=== PATIENT | male | born 1950 | race Caucasian/White ===

== ENCOUNTER 2017-11-24 17:06 | Emergency (ER) | payer MEDICARE ==
[2017-11-24] MEDS ORDERED: Ondansetron HCl/PF 4 MG/2 ML Vial ONE (17:18)
[2017-11-24] MEDS ORDERED: Ketorolac Tromethamine 30 MG/ML VIAL ONE (17:28)
[2017-11-24 17:46] LABS: #Basophils 0.1 thou/uL (0.0-0.2); #Eosinphils 0.3 thou/uL (0.0-0.7); #Lymphocytes 1.8 thou/uL (1.20-3.40); #Monocytes 0.9 thou/uL (0.11-0.59); #Neutrophils 5.3 thou/uL (1.40-6.50); %Lymphocytes 21.3 % (21.0-51.0); %Monocytes 10.4 % (0.0-10.0); %Neutrophils 63.4 % (42.0-75.0); Mean Corpuscular HGB CONC 34.9 g/dL (32.0-36.0); Mean Corpuscular Hemoglobin 30.8 pg (27.0-31.0); Mean Corpuscular Volume 88.1 fl (80.0-94.0); Mean Platelet Volume 8.3 fL (7.4-10.4); Platelet Count 238 thou/uL (130-400); RBC Distribution Width 10.9 % (11.5-14.5); Red Blood Cell (RBC) Count 4.88 mill/uL (4.70-6.10); White Blood Cell (WBC) Count 8.3 thou/uL (4.8-10.8)
[2017-11-24 18:03] LABS: ALT (SGPT) 23 U/L (8-55); AST (SGOT) 19 U/L (5-34); Albumin 4.3 g/dL (3.4-4.8); Alkaline Phosphatase 78 U/L (40-150); Anion Gap 17 mmol/L (10-20); BUN (Urea Nitrogen) 20 mg/dL (8.4-25.7); Bilirubin, Total 0.5 mg/dL (0.2-1.2); Calc. Creatinine Clearance 0 mL/min (70-130); Calcium 10.1 mg/dL (7.8-10.44); Carbon Dioxide 23 mmol/L (23-31); Chloride 105 mmol/L (98-107); Estimated GFR-MDRD 51; Glucose 143 mg/dL (80-115); Lipase 44 U/L (8-78); Potassium 3.8 mmol/L (3.5-5.1); Protein, Total 7.3 g/dL (5.8-8.1); Sodium 141 mmol/L (136-145)
--- NOTE | 2017-11-24 18:53 | CT ---
NONCONTRAST CT ABDOMEN AND PELVIS: Date: 11-24-17 History: Nausea and right flank pain with onset of symptoms 1.5 hours ago. Comparison: None available. FINDINGS: There is mild caliectasis on the right. A 3 mm calculus is present at the right UPJ. No obstructing r ight renal calculi are seen, the largest in the mid portion right kidney measuring 8 mm with a small calculus in the inferior pole right kidney. There is a 5.4 cm hypodense lesion in the inferior pole r ight kidney with a 7.5 cm exophytic hypodense lesion in the midportion left kidney, each of which dem onstrates attenuation coefficients on this non-enhanced CT scan exam suggestive of renal cysts. A 1.7 cm nodule is seen within the left adrenal gland which does not demonstrate an attenuation co-ef ficient suggestive of a simple adrenal adenoma based on this exam. This could represent a lipid poor adrenal adenoma, but further evaluation is recommended. The most superior aspect of the spleen is excluded from view. The remainder of the visualized portion of the spleen, liver, pancreas, right adrenal gland, and urinary bladder demonstrate a grossly maria eugenia l nonenhanced CT appearance. There is evidence colonic diverticulosis. Degenerative changes are seen in the spine. No free fluid, fluid collection, or lymphadenopathy is seen in the abdomen or pelvis. Vascular calcification is present in the abdominal aorta and iliac arteries. IMPRESSION: 1. Left adrenal nodule. This cannot be characterized as a simple adrenal adenoma on this exam, and CT scan exam following adrenal mass protocol is recommended. This can be performed on a non-emergent ba sis. 2. Minimally obstructing approximately 3 mm calculus at the right UPJ. 3. Nonobstructing right renal calculi. 4. Bilateral renal cysts. 5. Colonic diverticulosis. POS: [facility]
== END 2017-11-24 18:30 | disposition home or self-care (01) ==
LOC: SCSER 17:06
DX: N20.2 Calculus of kidney with calculus of ureter (principal)
CPT/HCPCS: 74176; 80053; 83690; 85025; 96361; 96374; 96375; J1885; J2405

== ENCOUNTER 2018-01-26 08:21 | Outpatient (CLI) | payer MEDICARE ==
[2018-01-26 09:18] LABS: Anion Gap 12 mmol/L (10-20); BUN (Urea Nitrogen) 14 mg/dL (8.4-25.7); Calc. Creatinine Clearance 0 mL/min (70-130); Calcium 9.9 mg/dL (7.8-10.44); Carbon Dioxide 28 mmol/L (23-31); Chloride 105 mmol/L (98-107); Estimated GFR-MDRD 59; Glucose 133 mg/dL (80-115); Potassium 4.1 mmol/L (3.5-5.1); Sodium 141 mmol/L (136-145)
--- NOTE | 2018-01-26 12:03 | CT ---
ABDOMEN CT WITH AND WITHOUT CONTRAST: HISTORY: Previous renal calculi. CT mass protocol recommended by radiologist. Left adrenal nodule. COMPARISON: 11/24/17. TECHNIQUE: Abdomen CT is performed with and without contrast. Coronal reformatted images are submitted for inte rpretation. FINDINGS: Lung bases are clear. Normal heart size. No significant pericardial fluid. Visualized aorta has a normal caliber. No periaortic fat stranding. The gallbladder is unremarkable. Intra- and extrahepatic portal vein is patent. Liver, spleen, pancreas, and right adrenal gland are unremarkable. Bilateral renal cysts are redemonstrated. Bilaterally, no obstructive uropathy. Nono bstructing calculus in the right renal pelvis measuring 1.3 cm. Visualized alimentary canal and mesentery are unremarkable. A 1.6 cm nodule in the left adrenal gland. Attenuation coefficient on the noncontrast study is 23 Ho unsfield units, on the venous sequence is 61 Hounsfield units, and on the 15-minute delay is 43 Houns field units. The absolute washout is 47%, relative washout is 30%. No lytic or blastic lesions within the osseous structures. IMPRESSION: Lesion in the left adrenal gland with an absolute and relative washout of 47 and 30% respectively. G iven that the washout is less than 60%, a malignant lesion cannot be excluded. POS: [facility]
== END 2018-01-26 08:22 | disposition home or self-care (01) ==
LOC: SCSCT 08:21
PROVIDERS: ATTEND Urology
DX: Z12.5 Encounter for screening for malignant neoplasm of prostate (principal); E27.9 Disorder of adrenal gland, unspecified
CPT/HCPCS: 36415; 74170; 80048; 82024; 82088; 82533; G0103

== ENCOUNTER 2018-08-18 08:38 | Outpatient (CLI) | payer MEDICARE ==
[2018-08-18] MEDS ORDERED: Iopamidol 370 76% 100 ML VIAL ONE (09:00)
--- NOTE | 2018-08-18 14:50 | CT ---
CT ABDOMEN WITH AND WITHOUT IV CONTRAST: 08/18/2018 HISTORY: Evaluate left adrenal mass and renal calculi. Adrenal gland disorder. COMPARISON: 01/26/2018 FINDINGS: The previously described left adrenal nodule is again seen and measures 1.7 cm. The attenuation coef ficient on pre-contrast images is 21 Hounsfield units, attenuation coefficient on the venous phase is 56 Hounsfield units, and on the 15 minute delayed image, the attenuation coefficient is 27 Hounsfiel d units. This represents an absolute wash-out of 82.9% and a relative wash-out of 51.8%. An absolut e wash-out of greater than 60% and a relative wash-out of greater than 40% is consistent with an manny star. Attenuation coefficients on the pre-contrast and the portal venous phase of imaging are similar to the prior study, although, on the 15 minute delayed wash-out, the attenuation coefficient is lowe r than on the prior exam. Bilateral renal cysts are again seen. There are stable, nonobstructing bilateral renal calculi, with the largest calculus within the mid portion of the right kidney, measuring 14 mm x 7 mm, with the ne xt largest calculus in the inferior pole, right kidney, measuring 8 mm. There is one additional calc ulus, adjacent to the larger calculus, which is small in size. No left renal calculus is visualized. There is minimal linear atelectasis versus scarring at the left lung base. The lung bases are otherw ise clear. The liver, spleen, pancreas, and bilateral adrenal glands demonstrate a normal CT appearance. Vascul ar calcifications are seen in the abdominal aorta. Colonic diverticulosis is present. There has been no significant interval change from the prior exam. IMPRESSION: 1. Left adrenal gland lesion with absolute and relative wash-out of 82.9% and 51.8%, respectively. An absolute wash-out of greater than 60% and a relative wash-out of greater than 40% is consistent wi th an adrenal adenoma. 2. Bilateral renal cysts. 3. Nonobstructing bilateral renal calculi. 4. Colonic diverticulosis. POS: [facility]
== END 2018-08-18 08:39 | disposition home or self-care (01) ==
LOC: SCSCT 08:38
PROVIDERS: ATTEND Urology
DX: E27.9 Disorder of adrenal gland, unspecified (principal); N20.0 Calculus of kidney; N28.1 Cyst of kidney, acquired; K57.30 Diverticulosis of large intestine without perforation or abscess without bleeding
CPT/HCPCS: 74170; 82565

== ENCOUNTER 2019-08-23 07:21 | Outpatient (CLI) | payer MEDICARE ==
[2019-08-23] MEDS ORDERED: Iopamidol 370 76% 100 ML VIAL ONE (09:00)
--- NOTE | 2019-08-23 11:15 | CT ---
CT ABDOMEN WITH AND WIHTOUT IV CONTRAST: Axial tomograms were obtained pre- and post-IV contrast. Postcontrast images were obtained in a port al venous and delayed venous phase. Adrenal protocol followed. COMPARISON: Comparison is made to prior CT adrenal scan performed 08/18/2018. FINDINGS: A 1.6 cm left adrenal nodule is again noted. Density values are recorded at all phases. Noncontrast density recorded at 22 which is similar to last year's noncontrast density which was 21. The portal venous density is recorded at 50. Last year's portal venous density is recorded at 56. The delayed density is recorded at 56. The delayed density today is recorded at 24. Last year's density was recorded at 26. There has been no change in size or density values when compared to last year. Liver, spleen, and pancreas unremarkable. There are bilateral adrenal cystic lesions which appear st able. There is a calcification in the right renal pelvis which measures 12 mm. No evidence of hydro nephrosis. There is a calcification in the lower pole of the lower pole of the right kidney measurin g 10 mm. Visualized ureters are normal caliber. Aorta shows atherosclerotic calcification without a neurysm. Visualized bowel loops appear unremarkable. IMPRESSION: 1. The left adrenal adenoma is unchanged in size and density when compared to last year. 2. Bilateral renal cystic lesions are stable. 3. Right renal calcifications are noted as described. POS: [facility]
== END 2019-08-23 07:22 | disposition home or self-care (01) ==
LOC: SCSCT 07:21
PROVIDERS: ATTEND Urology
DX: E27.8 Other specified disorders of adrenal gland (principal); E27.9 Disorder of adrenal gland, unspecified; Q61.8 Other cystic kidney diseases; D35.02 Benign neoplasm of left adrenal gland; N28.89 Other specified disorders of kidney and ureter
CPT/HCPCS: 74178; 82565; Q9967

== ENCOUNTER 2019-09-03 20:58 | Inpatient (IN) | payer MEDICARE ==
[~2019-09-03 20:58] MED LIST: Lidocaine 1% PF 5 ML VIAL ONE; Ondansetron PF 4 MG/2 ML Vial ONE; PHENYLEPHRINE-NS 100 MCG/ML 10 ML SYRINGE ONE; PROPOFOL 200 MG/20 ML VIAL ONE; Succinylcholine Chloride 20 MG/ML 10 ml SYRINGE FS ONE; ePHEDrine 50 MG/ML VIAL ONE
[2019-09-03] MEDS ORDERED: Iothalamate Meglumine 60% 50 ML VIAL FS ONE (21:19)
[2019-09-03] MEDS ORDERED: Norepinephrine 8 MG in Dextrose 5% in Water 242 ML IVPB PRN (21:30)
[2019-09-03 21:39] LABS: Hemoglobin 10.4 g/dL (14.0-18.0); Mean Corpuscular HGB CONC 33.8 g/dL (32.0-36.0); Mean Corpuscular Hemoglobin 29.8 pg (27.0-31.0); Mean Corpuscular Volume 88.2 fL (78.0-98.0); Mean Platelet Volume 8.2 fL (7.4-10.4); Platelet Count 161 thou/uL (130-400); RBC Distribution Width 12.5 % (11.5-14.5); Red Blood Cell (RBC) Count 3.48 mill/uL (4.70-6.10)
[2019-09-03 21:57] LABS: Band 2 % (5-11); Hypochromia SLIGHT = 6-15 cells (100X) (0-5/hpf); Lymphocytes 1 % (21-51); MDiff Complete? YES; Neutrophil 97 % (42-75); Platelet Morphology Comment Appears Adequate
[2019-09-03 21:58] LABS: ALT (SGPT) 11 U/L (8-55); AST (SGOT) 33 U/L (5-34); Alkaline Phosphatase 46 U/L (40-110); Anion Gap 11 mmol/L (10-20); BUN (Urea Nitrogen) 31 mg/dL (8.4-25.7); Bilirubin, Total 0.4 mg/dL (0.2-1.2); Calc. Creatinine Clearance 0 mL/min (70-130); Calcium 7.5 mg/dL (7.8-10.44); Carbon Dioxide 21 mmol/L (23-31); Chloride 108 mmol/L (98-107); Estimated GFR-MDRD 14; Globulin 2.1 g/dL (2.4-3.5); Glucose 127 mg/dL (80-115); Potassium 3.6 mmol/L (3.5-5.1); Protein, Total 5.1 g/dL (5.8-8.1); Sodium 136 mmol/L (136-145)
[2019-09-03] MEDS ORDERED: Phenylephrine HCL 10 MG/ML VIAL ONE (21:59)
[2019-09-03] MEDS ORDERED: methylPREDNISolone Sod Succ/PF 125 MG/2 ML VIAL ONE (22:11)
--- NOTE | 2019-09-03 22:19 | RAD ---
Exam: Chest one view HISTORY:Central line placement Comparison: 12/04/2014 FINDINGS: Cardiac silhouette:Enlarged cardiac silhouette Aorta: Unremarkable Pulmonary vessels: Normal Costophrenic angles: Clear LUNGS: No masses or consolidation. Changes along parenchyma. Lines and tubes: Right-sided vascular catheter terminates over the expected region of the right atriu m. Pneumothorax: None Osseous abnormalities: None IMPRESSION: No pneumothorax.
[2019-09-04] MEDS: Sodium Chloride 0.9% 1,000 ML IV SCH ×4 (00:15→21:40)
[2019-09-04] MEDS: cefTRIAXone\\ROCEPHIN 1 GM in Sodium Chloride 0.9% 100 ML IVPB SCH ×2 (00:33→23:16)
[2019-09-04 01:28] VITALS: BMI 30.1
[2019-09-04] MEDS ORDERED: Vancomycin HCl 1 GM in Premix Bag 1 BAG IVPB SCH (01:45)
--- NOTE | 2019-09-04 02:34 | HP ---
PRIMARY CARE PROVIDER: Dr. Carroll Torres. CHIEF COMPLAINT: Low blood pressure. HISTORY OF PRESENT ILLNESS: Mr. Conway is a pleasant 69-year-old gentleman, who was seen at [facility] on September 04, 2019. He was reportedly transferred here from [facility] Emergency Room. I obtained history from patient and his , emergency room physician and review of records. Mr. Conway was reportedly diagnosed with a kidney stone one and half years ago. It appears that he sees Dr. Brito. He started having flank pain two days ago. He went to the clinic and was diagnosed with nephrolithiasis. He was prescribed Tylenol No. 3, Zofran, and Flomax. Patient reports that he tried to get out of bed today and fell down on the floor. Patient's reports that he was less responsive than usual, sweating profusely and weak and he could not get back into his bed. He was therefore brought to the emergency room. In the emergency room, he was diagnosed with nephrolithiasis. He was taken to the operating room for urologic procedure. Patient is being admitted to hospitalist service following the procedure. REVIEW OF SYSTEMS: All systems were reviewed and found to be negative, except for the pertinent positives mentioned above. PAST MEDICAL HISTORY: Prediabetes, hypertension, and nephrolithiasis. PAST SURGICAL HISTORY: Right knee surgery and tonsillectomy. PSYCHIATRIC HISTORY: Depression. SOCIAL HISTORY: He is an ex-smoker. He occasionally drinks beer. No recreational drug use. FAMILY HISTORY: No family history of coronary artery disease. CODE STATUS: I discussed his code status. He is full code. ALLERGIES: PENICILLIN. CURRENT MEDICATIONS: These need to be clarified. PHYSICAL EXAMINATION: GENERAL: On examination, Mr. Conway is sleepy, but arousable, not in acute distress. VITAL SIGNS: Blood pressure is 99/59, pulse 68, respiratory rate 11, and oxygen saturation 98% on room air. He is afebrile. EYES: No scleral icterus, no conjunctival pallor. ENT: Moist mucosal membranes. No oropharyngeal erythema or exudates. NECK: Supple, nontender, trachea is midline. He has a left IJ line. RESPIRATORY: Accessory muscles of breathing are not active. Chest wall movements are symmetric bilaterally. Lungs are clear to auscultation without wheeze, rhonchi, or crepitations. CARDIOVASCULAR: S1 and S2 are heard, regular. Peripheral pulses palpable. NEUROLOGIC: Cranial nerves 2 through 12 are intact. MUSCULOSKELETAL: Patient is able to move all 4 extremities. SKIN: No rashes or subcutaneous nodules. LYMPHATIC: No cervical lymphadenopathy. PSYCHIATRIC: Normal mood, normal affect, patient is oriented to person, place, month, and the year. ABDOMEN: Soft, nontender, bowel sounds are heard. LABORATORY DATA: Mr. Conway's labs and investigations were reviewed. I reviewed his telemetry, he is in normal sinus rhythm. I also reviewed his chest x-ray, which does not show any pulmonary infiltrates. He has leukocytosis with 16,000 white cells, of which 97% are neutrophils and 2% are bands. He has normocytic anemia with hemoglobin 10.4, normal platelet count. Normal sodium; normal potassium; elevated creatinine of 4.35, creatinine was 1.42 on March 16, 2019. Normal lactic acid. Decreased albumin of 3.0. Normal total bilirubin. ASSESSMENT AND PLAN: Mr. Conway is a pleasant 69-year-old gentleman, who was seen at [facility] on September 04, 2019. His problem list includes: 1. Septic shock: Mr. Conway presented with septic shock. He currently has a central line infusing Levophed. He is being admitted to critical care unit for further management. Septic shock is most likely secondary to urinary tract infection. 2. Acute on chronic stage 3 renal failure: Most likely secondary to septic shock. We will hydrate the patient and also provide vasopressor support. We will recheck creatinine level. 3. Urinary tract infection: Patient has received vancomycin and ceftriaxone. I will continue the same. Pharmacy help will be requested for renal dosing. 4. Hypertension: Patient has a history of hypertension. He is currently hypotensive secondary to sepsis. We will hold off antihypertensives. Many thanks for allowing me to participate in your patient's care. Please feel free to contact me with any questions or concerns. LEVEL OF RISK: High. LEVEL OF COMPLEXITY: High. Job ID: [id number]
[2019-09-04 07:29] LABS: #Basophils 0.1 thou/uL (0.0-0.2); #Lymphocytes 0.2 thou/uL (1.20-3.40); #Monocytes 0.3 thou/uL (0.11-0.59); #Neutrophils 16.9 thou/uL (1.40-6.50); %Basophils 0.4 % (0.0-1.0); %Eosinophils 0.1 % (0.0-10.0); %Lymphocytes 1.2 % (21.0-51.0); %Monocytes 1.5 % (0.0-10.0); %Neutrophils 96.8 % (42.0-75.0); Hemoglobin 11.1 g/dL (14.0-18.0); Mean Corpuscular HGB CONC 31.4 g/dL (32.0-36.0); Mean Corpuscular Hemoglobin 27.9 pg (27.0-31.0); Mean Corpuscular Volume 88.8 fL (78.0-98.0); Mean Platelet Volume 8.6 fL (7.4-10.4); Platelet Count 164 thou/uL (130-400); RBC Distribution Width 12.5 % (11.5-14.5); Red Blood Cell (RBC) Count 3.99 mill/uL (4.70-6.10); White Blood Cell (WBC) Count 17.5 thou/uL (4.8-10.8)
[2019-09-04 07:42] LABS: Anion Gap 14 mmol/L (10-20); BUN (Urea Nitrogen) 35 mg/dL (8.4-25.7); Calc. Creatinine Clearance 28 mL/min (70-130); Carbon Dioxide 20 mmol/L (23-31); Chloride 106 mmol/L (98-107); Estimated GFR-MDRD 16; Glucose 234 mg/dL (80-115); Potassium 4.5 mmol/L (3.5-5.1); Sodium 135 mmol/L (136-145)
[2019-09-04] MEDS ORDERED: FLU VACC TS2019-20(65YR UP)/PF 180 MCG/0.5 ML SYRINGE IM ONE (09:00)
--- NOTE | 2019-09-04 10:10 | PRG ---
DATE OF SERVICE: 09/04/2019 This is a 69-year-old white male. I am seeing this morning in C7 of the ICU. I saw him last evening in the ER and then emergently took him to the OR, not sure where my H and P and operative note are. They were dictated last night. They have not made up to his record yet. Overnight, he has been doing better. His Levophed drip has diminished and probably will be able to be turned off. His blood pressure has been better. Urine output picked up nicely and has cleared up. It still has some pus in it, but it is much clear than it was after the stent was initially placed. He has not had a temperature. His O2 sats are good on just 2 L nasal cannula. He is on vancomycin and Rocephin. His white count is elevated at 17.5. His hemoglobin is 11.1. His creatinine is 4.3 yesterday evening, it was 3.7 this morning, so that starting to improve also. He states that he is feeling better. Less pain. No fever. No chills. No shortness of breath. His abdomen is soft. There is some right upper quadrant tenderness still, but not anywhere near as severe as it was yesterday. He is not hungry at all. I will plan on leaving the catheter in today and probably stay in the ICU through most of the day. His kidney should be protected now with the stent in place. Ly catheter, I would like to leave it in for at least a day. He will be on the Rocephin and vancomycin until the cultures come back. Overall, he has improved from what he was last night. It is fine by me for him to take clear liquids and advance his diet and is fine from my standpoint from to get out of bed, sit in a chair and walk in the room. Job ID: [id number]
--- NOTE | 2019-09-04 13:36 | PDOC.HOSPP ---
- Subjective Encounter Date: 09/04/19 Encounter Time: 11:33 Subjective: 69 y/o male with HTN, CKD and nephrolithiasis admitted to ICU with septic shock. patient had a fall/syncope at home associated with diaphoresis. Found to have obstructing stone and hypotension. as resuscitated with fluid and subsequently had cystoscopy with stent placement. Required pressors nut current off levophed. Feeling better. No chest pain, nausea or vomiting. - Objective Vital Signs & Weight: Vital Signs (12 hours) Temp Pulse Ox 09/04/19 12:00 98.0 F 09/04/19 07:50 98 09/04/19 07:00 97.8 F 09/04/19 04:00 97.9 F Weight Admit Weight 234 lb 12.8 oz Weight 234 lb 12.8 oz Most Recent Monitor Data Heart Rate from ECG 69 NIBP 116/68 NIBP BP-Mean 84 Respiration from ECG 19 SpO2 99 I&O: 09/03/19 09/04/19 09/05/19 06:59 06:59 06:59 Intake Total 1548.6 Output Total 555 880 Balance 993.6 -880 Result Diagrams: 09/04/19 07:07 09/04/19 07:07 Hospitalist ROS - Medication Medications: Active Medications Generic Name Dose Route Start Last Admin Trade Name Freq PRN Reason Stop Dose Admin Ceftriaxone Sodium 1 gm/ 100 mls @ 200 mls/hr 09/03/19 23:59 09/04/19 00:33 Sodium Chloride IVPB 100 mls 2359 CAROL Administration Sodium Chloride 1,000 mls @ 150 mls/hr 09/04/19 02:45 09/04/19 08:08 Normal Saline 0.9% IV 1,000 mls .Q6H40M CAROL Administration - Exam General Appearance: awake alert Eye: anicteric sclera ENT: normocephalic atraumatic Neck: supple, no JVD Heart: RRR Respiratory: no wheezes, no rales, no ronchi, normal chest expansion Gastrointestinal: soft, non-distended, normal bowel sounds, tender to palpation Extremities: no edema Neurological: cranial nerve grossly intact, no focal deficits Psychiatric: A&O x 3 Hosp A/P (1) Septic shock Code(s): A41.9 - SEPSIS, UNSPECIFIED ORGANISM; R65.21 - SEVERE SEPSIS WITH SEPTIC SHOCK Status: Acute (2) Nephrolithiasis Status: Acute (3) Pyelonephritis Code(s): N12 - TUBULO-INTERSTITIAL NEPHRITIS, NOT SPCF ACUTE OR CHRONIC Status: Acute (4) ROSEANNA (acute kidney injury) Code(s): N17.9 - ACUTE KIDNEY FAILURE, UNSPECIFIED Status: Acute (5) CKD (chronic kidney disease) stage 3, GFR 30-59 ml/min Code(s): N18.3 - CHRONIC KIDNEY DISEASE, STAGE 3 (MODERATE) Status: Acute - Plan Continue broad spectrum antibiotics, start sliding scale insulin. monitor electrolytes and renal function continue IVF
[2019-09-04] MEDS ORDERED: Dextrose 50% Abboject 50 ML SYRINGE SLOW IVP PRN (13:40)
[2019-09-04] MEDS ORDERED: HumaLOG 300 UNITS/3 ML VIAL SC PRN (13:40)
[2019-09-04] MEDS ORDERED: Dextrose 5% in Water 1,000 ML IV PRN (13:40)
[2019-09-04] MEDS ORDERED: B & O PR PRN (14:40)
--- NOTE | 2019-09-04 22:03 | CON ---
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 He has a history of nephrolithiasis and recently undergone CT scanning showing that his kidney stones were not causing a problem. Subsequently, he was admitted with hypotension, he was found to have ureteral obstruction. He was hypotensive prior to admission, but also taking his hypertension medications and noticed after he took his medications his blood pressure was running low yesterday. PAST MEDICAL HISTORY: Remarkable for hypertension, knee surgery, and tonsillectomy. SOCIAL HISTORY: He is a former smoker. Occasionally drinks beer. He is not a drug user. FAMILY HISTORY: Negative for lung disease. ALLERGIES: REPORTS PENICILLIN ALLERGY. REVIEW OF SYSTEMS: 10 point review of systems completed, otherwise negative. PHYSICAL EXAMINATION: GENERAL: He is sitting in a bedside chair, in no distress. VITAL SIGNS: Oximetry is 100% on room air, heart rate is in the 60s, blood pressure 132/71 this evening, respiratory rate 16. Intake and output was positive 993. HEAD AND NECK: Unremarkable. LUNGS: Clear. HEART: Regular rhythm. S1 and S2 are normal. ABDOMEN: Nontender. EXTREMITIES: Without clubbing, cyanosis, or edema. NEURO: Nonfocal. LABORATORY DATA: White count 17.5, hemoglobin 11.1, platelets 164. Sodium 135, potassium 4.5, chloride 106, bicarb 20, BUN 35, creatinine 3.76 down from 4.35. Microbiology showing enterococcus from the ureteral cultures. IMPRESSION: Urinary tract sepsis secondary to an obstructing stone. He is on vancomycin which should cover for enterococcus. He has no reason to suspect vancomycin-resistant Enterococcus. He is weaned off pressors this morning. He could be transferred to a step-down unit if he remained stable throughout the day or even to a surgical unit or medical bed. This is a 70 minute consult, with greater than 50% of time spent on unit coordinating care. Job ID: [id number] [facility]ITALBaudilio
[2019-09-05 01:50] LABS: Vancomycin, Random 9.9 ug/mL (See Comment)
[2019-09-05] MEDS ORDERED: Vancomycin HCl 1 GM in Premix Bag 1 BAG IVPB SCH ×2 (03:00→21:00)
[2019-09-05] MEDS: Vancomycin HCl 1 GM in Premix Bag 1 BAG IVPB SCH (04:33)
[2019-09-05] MEDS: Sodium Chloride 0.9% 1,000 ML IV SCH ×3 (04:37→18:29)
[2019-09-05 04:55] LABS: #Lymphocytes 0.6 thou/uL (1.20-3.40); #Monocytes 1.2 thou/uL (0.11-0.59); %Eosinophils 0.1 % (0.0-10.0); %Lymphocytes 3.8 % (21.0-51.0); %Neutrophils 88.1 % (42.0-75.0); Hemoglobin 10.7 g/dL (14.0-18.0); Mean Corpuscular HGB CONC 33.2 g/dL (32.0-36.0); Mean Corpuscular Hemoglobin 29.2 pg (27.0-31.0); Mean Corpuscular Volume 88.1 fL (78.0-98.0); Mean Platelet Volume 9.1 fL (7.4-10.4); Platelet Count 157 thou/uL (130-400); RBC Distribution Width 12.4 % (11.5-14.5); Red Blood Cell (RBC) Count 3.68 mill/uL (4.70-6.10); White Blood Cell (WBC) Count 14.7 thou/uL (4.8-10.8)
[2019-09-05 05:02] LABS: ALT (SGPT) 17 U/L (8-55); AST (SGOT) 34 U/L (5-34); Albumin 3.1 g/dL (3.4-4.8); Alkaline Phosphatase 47 U/L (40-110); Anion Gap 10 mmol/L (10-20); BUN (Urea Nitrogen) 34 mg/dL (8.4-25.7); Bilirubin, Total 0.3 mg/dL (0.2-1.2); Calc. Creatinine Clearance 43 mL/min (70-130); Calcium 8.3 mg/dL (7.8-10.44); Carbon Dioxide 22 mmol/L (23-31); Chloride 111 mmol/L (98-107); Estimated GFR-MDRD 26; Globulin 2.4 g/dL (2.4-3.5); Glucose 140 mg/dL (80-115); Potassium 4.4 mmol/L (3.5-5.1); Protein, Total 5.5 g/dL (5.8-8.1); Sodium 139 mmol/L (136-145)
--- NOTE | 2019-09-05 10:57 | PDOC.HOSPP ---
- Subjective Encounter Date: 09/05/19 Encounter Time: 10:54 Subjective: Feel lot better, off levofed - Objective Vital Signs & Weight: Vital Signs (12 hours) Temp Pulse Ox 09/05/19 08:00 96 09/05/19 07:00 98.0 F 09/05/19 04:00 98.3 F 09/05/19 00:00 98.1 F Weight Admit Weight 234 lb 12.8 oz Weight 234 lb 12.8 oz Most Recent Monitor Data Heart Rate from ECG 73 NIBP 140/86 NIBP BP-Mean 104 Respiration from ECG 20 SpO2 97 I&O: 09/04/19 09/05/19 09/06/19 06:59 06:59 06:59 Intake Total 1548.6 3319 240 Output Total 555 2340 300 Balance 993.6 979 -60 Result Diagrams: 09/05/19 04:25 09/05/19 04:25 Additional Labs: Accuchecks 09/05/19 09/05/19 09/04/19 07:47 04:31 20:32 POC Glucose 118 H 139 H 139 H 09/04/19 16:50 POC Glucose 169 H Hospitalist ROS - Medication Medications: Active Medications Generic Name Dose Route Start Last Admin Trade Name Freq PRN Reason Stop Dose Admin Belladonna Alkaloids/Opium 60 mg 09/04/19 14:40 09/04/19 14:53 B & O SD 09/06/19 00:01 60 mg Q8H PRN Administration Bladder Spasms Ceftriaxone Sodium 1 gm/ 100 mls @ 200 mls/hr 09/03/19 23:59 09/04/19 23:16 Sodium Chloride IVPB 100 mls 2359 CAROL Administration Sodium Chloride 1,000 mls @ 150 mls/hr 09/04/19 02:45 09/05/19 04:37 Normal Saline 0.9% IV 1,000 mls .Q6H40M CAROL Administration Vancomycin HCl 1 gm/ Device 200 mls @ 200 mls/hr 09/05/19 03:00 09/05/19 04: 33 IVPB 200 mls 0300 CAROL Administration - Exam General Appearance: NAD, awake alert, ill appearing Eye: PERRL, anicteric sclera, scleral icterus ENT: normocephalic atraumatic, no oropharyngeal lesions, moist mucosa, dry oral mucosa Neck: supple, symmetric, no JVD, no thyromegaly, no lymphadenopathy, no carotid bruit, JVD Heart: RRR, no murmur, no gallops, no rubs, normal peripheral pulses, irregular , diminshed peripheral pulses, murmur present, II/IV, III/IV Respiratory: CTAB, no wheezes, no rales, no ronchi, normal chest expansion, no tachypnea, normal percussion, rales, rhonchi, tachypneic, wheezes Gastrointestinal: soft, non-tender, non-distended, normal bowel sounds, no palpable masses, no hepatomegaly, no splenomegaly, no bruit, no guarding, no rigidity, tender to palpation, distended, diminished bowl sounds, voluntary guarding Extremities: no cyanosis, no clubbing, no edema, 1+ LE edema, 2+ LE edema, clubbing Skin: normal turgor, no lesions, no rashes, tenting Hosp A/P (1) Nephrolithiasis Status: Acute (2) Pyelonephritis Code(s): N12 - TUBULO-INTERSTITIAL NEPHRITIS, NOT SPCF ACUTE OR CHRONIC Status: Acute (3) Septic shock Code(s): A41.9 - SEPSIS, UNSPECIFIED ORGANISM; R65.21 - SEVERE SEPSIS WITH SEPTIC SHOCK Status: Acute - Plan Possible transfer to telemetry if okay with Dr. Love. Continue IV antibitics.
[2019-09-05 11:34] LABS: #Lymphocytes 0.6 thou/uL (1.20-3.40); #Monocytes 1.2 thou/uL (0.11-0.59); #Neutrophils 12.5 thou/uL (1.40-6.50); %Eosinophils 0.2 % (0.0-10.0); %Monocytes 8.6 % (0.0-10.0); %Neutrophils 87.2 % (42.0-75.0); Mean Corpuscular HGB CONC 32.3 g/dL (32.0-36.0); Mean Corpuscular Hemoglobin 28.4 pg (27.0-31.0); Mean Corpuscular Volume 87.9 fL (78.0-98.0); Mean Platelet Volume 8.8 fL (7.4-10.4); Platelet Count 162 thou/uL (130-400); RBC Distribution Width 12.5 % (11.5-14.5); Red Blood Cell (RBC) Count 3.88 mill/uL (4.70-6.10); White Blood Cell (WBC) Count 14.3 thou/uL (4.8-10.8)
[2019-09-05 11:55] LABS: Anion Gap 11 mmol/L (10-20); BUN (Urea Nitrogen) 33 mg/dL (8.4-25.7); Calc. Creatinine Clearance 49 mL/min (70-130); Calcium 8.3 mg/dL (7.8-10.44); Carbon Dioxide 20 mmol/L (23-31); Chloride 110 mmol/L (98-107); Estimated GFR-MDRD 31; Glucose 124 mg/dL (80-115); Potassium 4.1 mmol/L (3.5-5.1); Sodium 137 mmol/L (136-145)
--- NOTE | 2019-09-05 18:25 | PRG ---
DATE OF SERVICE: 09/05/2019 SUBJECTIVE: Mr. Conway is clinically doing well. He had no complaints. His blood pressure has been stable. He has remained off pressors. OBJECTIVE: VITAL SIGNS: Blood pressure in the 130s, heart rates in the 70s, respiratory rate , oximetry is 98% to 100%. LUNGS: Clear. HEART: Regular rhythm. ABDOMEN: Soft. LABORATORY DATA: White count 14.3, hemoglobin 11.0, platelets 162. Sodium 137, potassium 4.1, chloride 110, bicarb 20, BUN 33, creatinine 2.14, down from 2.44. IMPRESSION: Enterococcus faecalis bacteremia secondary to an obstructing stone. Enterococcus is ampicillin sensitive. I will defer to Dr. Tapia. Mr. Conway wants the Ly out. I will also defer this to . Otherwise, he is stable to move out of the Critical Care Unit. Job ID: [id number]
[2019-09-05] MEDS: Phenazopyridine HCl 97.5 MG TABLET PO SCH (18:27)
[2019-09-06] MEDS: cefTRIAXone\\ROCEPHIN 1 GM in Sodium Chloride 0.9% 100 ML IVPB SCH (00:29)
[2019-09-06] MEDS: Vancomycin HCl 1 GM in Premix Bag 1 BAG IVPB SCH (00:34)
[2019-09-06] MEDS: Sodium Chloride 0.9% 1,000 ML IV SCH ×2 (05:38→08:05)
[2019-09-06] MEDS: Phenazopyridine HCl 97.5 MG TABLET PO SCH ×3 (08:57→17:53)
--- NOTE | 2019-09-06 10:04 | CON ---
DATE OF CONSULTATION: 09/03/2019 HISTORY OF PRESENT ILLNESS: This is a 69-year-old white male who has a history of kidney stones. He is a patient Dr. Brito. He was not feeling well yesterday, some right flank pain, some nausea, vomited once. I saw his family doctor or someone who was covering for his family doctor, was placed on some pain medication, felt he was passing a stone. Today, his found him probably passed out at her home, brought him into the [facility] ER. There he had a CAT scan done that shows he has a 1 cm proximal obstructing right ureteral stone and some hydronephrosis above. His urinalysis there had white cells and bacteria. He received Rocephin there. Blood and urine cultures were set up. He was transferred here. He is going to receive some vancomycin here. His blood pressure is low here. His creatinine was 4.5 at the [facility], I do not have those records, but I was able to review the CAT scan from the [facility]. He has had a history of stones prior. PAST MEDICAL HISTORY: He has diabetes. He takes metformin. He has hypertension. He takes one antihypertensive. He takes some vitamins and supplements. PAST SURGICAL HISTORY: Surgical history is really not very impressive. ALLERGIES: PENICILLIN. SOCIAL HISTORY: He used to smoke. He does drink some alcohol. 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 He is currently getting a central line placed. I have talked with him and his . He is going to receive the vancomycin. He will receive some pressure support and he is to go up to the OR, have an emergent stent placed and then he will need to go to the ICU after that. He most likely has a urinary tract infection with a proximal ureteral obstruction and is becoming septic from that. Job ID: [id number]
--- NOTE | 2019-09-06 14:24 | PRG ---
DATE OF SERVICE: 09/05/2019 REASON FOR CONSULTATION: 1. Obstructive nephrolithiasis. 2. Urosepsis. 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 The patient is cared for by Dr. Doron Tapia, who evaluated him on 09/04/2019, due to the emergency room admission with findings of elevated white blood cell count and a CT scan, which previously demonstrated obstructive urolithiasis on 08/23/2019. The patient underwent CT scanning on that date, which demonstrated left adrenal adenoma, bilateral renal cystic disease, right renal calcifications. The patient was admitted on 09/03/2019 via the Emergency Department, where he underwent evaluation after being found unresponsive by his . The patient was brought to the [facility] ER for evaluation of the urosepsis. The patient was previously diagnosed with a right ureteropelvic junction calculus, which is relatively large. He did not have obstruction actually at the time of the CT scan as documented by contrast passing around the calculus into the patient's distal ureters. The patient has apparently additional lower pole calcification as well on the right side. He underwent treatment by Dr. Tapia, which included a right-sided double-J ureteral stent. In addition, the patient has a history of urethral stricture disease and additional urethral strictures were noted at the time of the cystoscopy. A Ly catheter was placed for complete drainage of his collecting system based on the suspicion of urosepsis. The patient has been in the intensive care unit and the input of Dr. Love as well as the Hospitalist Service is appreciated. PHYSICAL EXAMINATION: VITAL SIGNS: The patient remains afebrile at the present time with a temperature of 98.0. The patient's blood pressure is 146/79 and pulse rate is 71. GENERAL: Pleasant, awake, alert, white male, in no apparent distress. He is a reasonable historian. There is no evidence of altered mental status at the present time. HEAD, EYES, EARS, NOSE, AND THROAT: Extraocular movements are intact. Sclerae anicteric. Oropharynx is clear. NECK: Supple. LUNGS: Clear to auscultation bilaterally. CARDIAC: Regular rate and rhythm. ABDOMEN: Soft and nontender. Percussion reveals increased resonance. The patient reports he is having a bowel movement today. There is particulate served in the urine and catheter is in place. catheter, which are typical. The patient reports his bladder spasms seems improved with . LABORATORY STUDIES: The patient's white count is down to 14.3 , neutrophil percentage still remain elevated at 87.2% neutrophils are elevated, but improved at 12.5. Hemoglobin is relatively stable at 11 with a hematocrit of 34.1. Laboratory microbiology studies show urine obtained at cystoscopy is growing enterococcus faecalis. Blood cultures x2 are also positive for enterococcus. The urine culture from shows susceptibility to vancomycin and is only resistant to erythromycin. The patient presumed transition to oral medications or even appropriate penicillin and piperacillin antibiotic. ASSESSMENT AND PLAN: 1. Right-sided renal calculus. The patient has indwelling stent basis by Dr. Doron Tapia. 2. Urethral stricture disease, concurrent infection, and urosepsis. The patient strictures. The catheter should remain placed voiding trial may be improvement. This will also be by Dr. Tapia. 3. Enterococcus faecalis urinary tract infection and urosepsis. The patient is appropriately managed on the current vancomycin course to which the organism appears placement. At the present time, catheter should remain in place. Otherwise, via appropriate patient. Over 30 minutes of consultation assessment time was spent in evaluation . Job ID: [id number]
--- NOTE | 2019-09-06 14:51 | PDOC.HOSPP ---
- Subjective Encounter Date: 09/06/19 Encounter Time: 14:50 Subjective: No New complaints - Objective Vital Signs & Weight: Vital Signs (12 hours) Temp Pulse Ox 09/06/19 12:00 98.8 F 09/06/19 08:00 98.2 F 96 Weight Admit Weight 234 lb 12.8 oz Weight 234 lb 12.8 oz Most Recent Monitor Data Heart Rate from ECG 80 NIBP 140/83 NIBP BP-Mean 102 Respiration from ECG 16 SpO2 95 I&O: 09/05/19 09/06/19 09/07/19 06:59 06:59 06:59 Intake Total 3319 1878 420 Output Total 2340 2885 300 Balance 979 -1007 120 Result Diagrams: 09/05/19 11:02 09/05/19 11:02 Additional Labs: Accuchecks 09/06/19 09/06/19 09/05/19 12:25 06:16 20:30 POC Glucose 101 103 129 H 09/05/19 09/05/19 17:19 12:12 POC Glucose 126 H 126 H Hospitalist ROS - Medication Medications: Active Medications Generic Name Dose Route Start Last Admin Trade Name Freq PRN Reason Stop Dose Admin Ceftriaxone Sodium 1 gm/ 100 mls @ 200 mls/hr 09/03/19 23:59 09/06/19 00:29 Sodium Chloride IVPB 100 mls 2359 CAROL Administration Vancomycin HCl 1 gm/ Device 200 mls @ 200 mls/hr 09/05/19 03:00 09/06/19 00: 34 IVPB 200 mls 0300 CAROL Administration Phenazopyridine HCl 97.5 mg 09/05/19 18:00 09/06/19 08:57 Azo Standard PO 97.5 mg PC CAROL Administration - Exam General Appearance: NAD, awake alert, ill appearing ENT: normocephalic atraumatic, no oropharyngeal lesions, moist mucosa, dry oral mucosa Neck: supple, symmetric, no JVD, no thyromegaly, no lymphadenopathy, no carotid bruit, JVD Heart: RRR, no murmur, no gallops, no rubs, normal peripheral pulses, irregular , diminshed peripheral pulses, murmur present, II/IV, III/IV Respiratory: CTAB, no wheezes, no rales, no ronchi, normal chest expansion, no tachypnea, normal percussion, rales, rhonchi, tachypneic, wheezes Gastrointestinal: soft, non-tender, non-distended, normal bowel sounds, no palpable masses, no hepatomegaly, no splenomegaly, no bruit, no guarding, no rigidity, tender to palpation, distended, diminished bowl sounds, voluntary guarding Hosp A/P (1) Nephrolithiasis Status: Acute (2) Pyelonephritis Code(s): N12 - TUBULO-INTERSTITIAL NEPHRITIS, NOT SPCF ACUTE OR CHRONIC Status: Acute (3) Septic shock Code(s): A41.9 - SEPSIS, UNSPECIFIED ORGANISM; R65.21 - SEVERE SEPSIS WITH SEPTIC SHOCK Status: Acute - Plan Possible transfer to telemetry if okay with Dr. Love. Continue IV antibitics.Await bed.
--- NOTE | 2019-09-06 15:31 | OP ---
DATE OF PROCEDURE: 09/03/2019 PREOPERATIVE DIAGNOSIS: Right ureteral obstruction from a right ureteral stone and sepsis. POSTOPERATIVE DIAGNOSES: 1. Right ureteral obstruction from a right ureteral stone. 2. Sepsis. 3. Urethral stricture disease. PROCEDURES PERFORMED: Cystoscopy, right retrograde, right stent and difficult Ly placement. ANESTHETIC: General. ESTIMATED BLOOD LOSS: Minimal. DRAINS PLACED: A 6 x 26 Polaris double-J stent without a string attached and a 16-Malagasy Councill tip catheter. INDICATIONS FOR SURGERY: This is a 69-year-old white male who presented to [place] [facility] and was transferred here with a right ureteral obstruction and the urine had appeared infected. When he got to the ER here, his blood pressure dropped. He had a central line placed in the ER, started on Levophed. He had received Rocephin over at [place] [facility] and he was started on vancomycin here. He needs emergent stent placement. DESCRIPTION OF PROCEDURE: Obtained written and verbal consent from the patient's family, he was taken to the operating suite. He was placed in supine position on the treatment table. PlexiPulses were placed on his lower extremities and turned on. He was given a general anesthetic and oral obturator intubation. He was then placed in a dorsal lithotomy position, sterilely prepped and draped. The fluoroscopy unit was positioned over and was used during the procedure. Cystoscopy was performed with a 22-Malagasy sheath. This was well lubricated and passed under direct vision through the male urethra. He had diffuse stricture disease that were easily passed until about the bulb where it narrowed down. We fed a wire across this point and then we were able to fairly easily pass the scope by this point into the bladder. His prostate was moderately enlarged. He had a lot of debris and some small stones in the floor of the urinary bladder. A client development manager KUB was taken with a fluoroscopy unit. A 0.038 guidewire was fed up the right ureter and went up to the point where the stone was seen and then went by it easily. We passed the open-ended Pollack catheter up over the wire to this point, removed the wire and drained about 12 to 15 mL of very socrates purulent pus, very thick. We then injected about 5 mL of contrast to fill the collecting system, replaced the guidewire through the open-ended catheter, removed the guidewire and placed a 6 x 26 Polaris double-J stent over the guidewire pushing up into place with aid of a pusher, so its proximal end coiled in the renal pelvis and its distal end coiled in the bladder when the wire was removed. There appeared to be good efflux of very purulent looking urine through the ports on the stent. At this point, a guidewire was left into the bladder and the scope was removed and then we fed a 16 Councill tip catheter over the guidewire into the bladder, placed 10 mL in the balloon and hooked up to gravity. At this point, he was taken out of the dorsal lithotomy position, awakened and extubated, and taken by stretcher to recovery room. I did do an exam while he was asleep. He is circumcised. Testicles are descended without mass or tenderness. Rectal exam revealed an enlarged prostate. There was no nodularity. Job ID: [id number]
--- NOTE | 2019-09-06 16:08 | PRG ---
DATE OF SERVICE: 09/06/2019 This is a 69-year-old white male, I am seeing still in room C7 of the ICU. He has been ready to go to the floor since yesterday, but has not any floor beds. His vital signs have improved. His blood pressure is good. He has had good urine output. His urine is clear. He is comfortable. He still has a very poor appetite, but is drinking some fluids. He grew out an Enterococcus in his urine and Enterococcus in his blood. The sensitivities show resistance to erythromycin. He is on vancomycin. He also had a Staphylococcal species. His creatinine was down to 2.1 yesterday. It does not look like one was drawn today. His abdomen is soft and flat and nontender. The calves are nontender. He is having no shortness of breath, no chest pain. His Ly catheter was removed this morning at about 6:00. Hopefully, he will be able to urinate without difficulty. They tell me he had some urethral stricture disease that is why left the catheter in for an extra day. I also contacted Dr. Brito as he is established patient for him to resume care on [facility]. It seems like he is turning the corner in terms of recovering from the sepsis and we will have to deal treating the stone at another time. Job ID: [id number]
[2019-09-07] MEDS: cefTRIAXone\\ROCEPHIN 1 GM in Sodium Chloride 0.9% 100 ML IVPB SCH (00:07)
[2019-09-07 02:39] LABS: Vancomycin, Trough 10.6 ug/mL
[2019-09-07] MEDS: Vancomycin HCl 1.5 GM in Sodium Chloride 0.9% 250 ML 300 ML IVPB SCH (03:55)
[2019-09-07 08:33] LABS: Anion Gap 12 mmol/L (10-20); BUN (Urea Nitrogen) 27 mg/dL (8.4-25.7); Calc. Creatinine Clearance 58 mL/min (70-130); Calcium 8.9 mg/dL (7.8-10.44); Carbon Dioxide 22 mmol/L (23-31); Chloride 109 mmol/L (98-107); Estimated GFR-MDRD 37; Glucose 99 mg/dL (80-115); Potassium 3.8 mmol/L (3.5-5.1); Sodium 139 mmol/L (136-145)
[2019-09-07] MEDS: Phenazopyridine HCl 97.5 MG TABLET PO SCH ×3 (08:36→17:16)
--- NOTE | 2019-09-07 08:49 | PRG ---
DATE OF SERVICE: 09/06/2019 SUBJECTIVE: Nasir Conway has no complaints. Ly is out. Dr. Tapia wants to keep him OBJECTIVE: VITAL SIGNS: Afebrile, blood pressure 146/84, respiratory rate 16 LUNGS: Clear. HEART: Regular rhythm. ABDOMEN: soft. IMPRESSION AND PLAN: Urinary tract sepsis secondary to nephrolithiasis status post emergent stent placement. Enterococcus faecalis is isolated from the blood cultures and urine culture. Enterococcus was sensitive to ampicillin and vancomycin. We will continue vancomycin now. He could probably be switched to Augmentin. The Rocephin could probably be discontinued. Job ID: [id number]
--- NOTE | 2019-09-07 09:48 | PRG ---
DATE OF SERVICE: 09/07/2019 This is a 69-year-old male, I am seeing today in room 4416 at [facility]. His vital signs are stable. He seems to be feeling better and seems to have recovered from his septic shock. I have talked to Microbiology. He has Enterococcus in his blood and in his urine, he had a staph in his urine also, but not a staph in his blood. The Enterococcus is sensitive to quinolones and penicillins as well as the vancomycin. Unfortunately, he is allergic. He tells me the penicillin and to Cipro. He has rashes with both, so we are not going to be able to send him out on either of these drugs. I think we will need to get Infectious Disease consult to see him regarding, which antibiotic he should go home on whether or not he even needs to go home with a PICC line. We will go ahead and put a consult in. Job ID: [id number]
--- NOTE | 2019-09-07 10:11 | PDOC.HOSPP ---
- Subjective Encounter Date: 09/07/19 Encounter Time: 10:08 Subjective: the patient is in good spirits - Objective Vital Signs & Weight: Vital Signs (12 hours) Temp Pulse Resp BP Pulse Ox 09/07/19 04:00 98.6 F 62 20 149/79 H 93 L Weight Admit Weight 234 lb 12.8 oz Weight 234 lb 12.8 oz Most Recent Monitor Data Heart Rate from ECG 80 NIBP 140/83 NIBP BP-Mean 102 Respiration from ECG 16 SpO2 95 I&O: 09/06/19 09/07/19 09/08/19 06:59 06:59 06:59 Intake Total 1878 420 Output Total 2885 300 Balance -1007 120 Result Diagrams: 09/05/19 11:02 09/07/19 07:41 Additional Labs: Accuchecks 09/07/19 09/06/19 09/06/19 04:55 21:18 18:46 POC Glucose 104 111 H 144 H 09/06/19 12:25 POC Glucose 101 Hospitalist ROS - Medication Medications: Active Medications Generic Name Dose Route Start Last Admin Trade Name Nithinq PRN Reason Stop Dose Admin Vancomycin HCl 1.5 gm/ Sodium 300 mls @ 200 mls/hr 09/07/19 03:00 09/07/19 03 :55 Chloride IVPB 300 mls 0300 CAROL Administration Phenazopyridine HCl 97.5 mg 09/05/19 18:00 09/07/19 08:36 Azo Standard PO 97.5 mg PC CAROL Administration Sodium Chloride 10 ml 09/06/19 21:00 09/07/19 08:37 Flush - Normal Saline IVF 10 ml Q12HR CAROL Administration - Exam General Appearance: NAD, awake alert, ill appearing Eye: PERRL, anicteric sclera, scleral icterus ENT: normocephalic atraumatic, no oropharyngeal lesions, moist mucosa, dry oral mucosa Neck: supple, symmetric, no JVD, no thyromegaly, no lymphadenopathy, no carotid bruit, JVD Heart: RRR, no murmur, no gallops, no rubs, normal peripheral pulses, irregular , diminshed peripheral pulses, murmur present, II/IV, III/IV Respiratory: CTAB, no wheezes, no rales, no ronchi, normal chest expansion, no tachypnea, normal percussion, rales, rhonchi, tachypneic, wheezes Gastrointestinal: soft, non-tender, non-distended, normal bowel sounds, no palpable masses, no hepatomegaly, no splenomegaly, no bruit, no guarding, no rigidity, tender to palpation, distended, diminished bowl sounds, voluntary guarding Extremities: no cyanosis, no clubbing, no edema, 1+ LE edema, 2+ LE edema, clubbing Hosp A/P (1) Nephrolithiasis Status: Acute (2) Pyelonephritis Code(s): N12 - TUBULO-INTERSTITIAL NEPHRITIS, NOT SPCF ACUTE OR CHRONIC Status: Acute (3) Septic shock Code(s): A41.9 - SEPSIS, UNSPECIFIED ORGANISM; R65.21 - SEVERE SEPSIS WITH SEPTIC SHOCK Status: Acute - Plan Possible transfer to telemetry if okay with Dr. Love. Continue IV antibitics.Await bed.E Fecalis s to PCN, CIPRO and Vancomycin. The patient is allergic to CIPRO and PCN. Consult Dr. Murray for out patient IV vancomycin as it requires monitoring.
[2019-09-07] MEDS: traMADol HCl 50 MG TAB PO PRN (12:41)
[2019-09-07] MEDS: metFORMIN 500 MG TAB PO SCH (17:16)
[2019-09-08] MEDS: Vancomycin HCl 1.5 GM in Sodium Chloride 0.9% 250 ML 300 ML IVPB SCH (03:07)
[2019-09-08 06:00] LABS: Anion Gap 11 mmol/L (10-20); BUN (Urea Nitrogen) 20 mg/dL (8.4-25.7); Calc. Creatinine Clearance 61 mL/min (70-130); Calcium 8.8 mg/dL (7.8-10.44); Carbon Dioxide 25 mmol/L (23-31); Chloride 105 mmol/L (98-107); Estimated GFR-MDRD 40; Glucose 101 mg/dL (80-115); Potassium 3.7 mmol/L (3.5-5.1); Sodium 137 mmol/L (136-145)
[2019-09-08] MEDS: Lisinopril/Hydrochlorothiazide 20 mg/12.5 mg Tablet PO SCH (08:40)
[2019-09-08] MEDS: metFORMIN 500 MG TAB PO SCH ×2 (08:40→18:30)
[2019-09-08] MEDS: Phenazopyridine HCl 97.5 MG TABLET PO SCH ×3 (08:40→18:30)
[2019-09-08] MEDS: Atorvastatin Calcium 10 MG TAB PO SCH (08:40)
[2019-09-08] MEDS: traMADol HCl 50 MG TAB PO PRN ×2 (14:18→20:58)
--- NOTE | 2019-09-08 14:41 | PDOC.HOSPP ---
- Subjective Encounter Date: 09/08/19 Encounter Time: 14:39 Subjective: No new complaints - Objective Vital Signs & Weight: Vital Signs (12 hours) Temp Pulse Resp BP BP Pulse Ox 09/08/19 08:00 93 L 09/08/19 07:39 98.8 F 63 20 150/75 H 93 L 09/08/19 04:00 98.6 F 64 18 153/75 H 94 L Weight Admit Weight 234 lb 12.8 oz Weight 234 lb 12.8 oz Most Recent Monitor Data Heart Rate from ECG 80 NIBP 140/83 NIBP BP-Mean 102 Respiration from ECG 16 SpO2 95 I&O: 09/07/19 09/08/19 09/09/19 06:59 06:59 06:59 Intake Total 420 570 Output Total 300 100 Balance 120 470 Result Diagrams: 09/05/19 11:02 09/08/19 05:02 Additional Labs: Accuchecks 09/08/19 09/08/19 09/07/19 11:55 04:31 20:11 POC Glucose 102 103 140 H 09/07/19 16:32 POC Glucose 153 H Hospitalist ROS - Medication Medications: Active Medications Generic Name Dose Route Start Last Admin Trade Name Freq PRN Reason Stop Dose Admin Atorvastatin Calcium 10 mg 09/08/19 09:00 09/08/19 08:40 Lipitor PO 10 mg DAILY CAROL Administration Lisinopril/HCTZ 1 tab 09/08/19 09:00 09/08/19 08:40 Prinizide 20-12.5 PO 1 tab DAILY CAROL Administration Vancomycin HCl 1.5 gm/ Sodium 300 mls @ 200 mls/hr 09/07/19 03:00 09/08/19 03 :07 Chloride IVPB 300 mls 0300 CAROL Administration Metformin HCl 500 mg 09/07/19 17:00 09/08/19 08:40 Glucophage PO 500 mg BID-WM CAROL Administration Phenazopyridine HCl 97.5 mg 09/05/19 18:00 09/08/19 14:18 Azo Standard PO 97.5 mg PC CAROL Administration Sodium Chloride 10 ml 09/06/19 21:00 09/08/19 08:41 Flush - Normal Saline IVF 10 ml Q12HR CAROL Administration Tramadol HCl 50 mg 09/07/19 11:57 09/08/19 14:18 Ultram PO 50 mg Q6H PRN Administration Pain - Exam General Appearance: NAD, awake alert, ill appearing ENT: normocephalic atraumatic, no oropharyngeal lesions, moist mucosa, dry oral mucosa Neck: supple, symmetric, no JVD, no thyromegaly, no lymphadenopathy, no carotid bruit, JVD Heart: RRR, no murmur, no gallops, no rubs, normal peripheral pulses, irregular , diminshed peripheral pulses, murmur present, II/IV, III/IV Respiratory: CTAB, no wheezes, no rales, no ronchi, normal chest expansion, no tachypnea, normal percussion, rales, rhonchi, tachypneic, wheezes Gastrointestinal: soft, non-tender, non-distended, normal bowel sounds, no palpable masses, no hepatomegaly, no splenomegaly, no bruit, no guarding, no rigidity, tender to palpation, distended, diminished bowl sounds, voluntary guarding Extremities: no cyanosis, no clubbing, no edema, 1+ LE edema, 2+ LE edema, clubbing Skin: normal turgor, no lesions, no rashes, tenting Neurological: cranial nerve grossly intact, normal sensation to touch, no weakness, no focal deficits, no new deficit, facial droop, hemiplegia, speech deficit, vision deficit Hosp A/P (1) Nephrolithiasis Status: Acute (2) Pyelonephritis Code(s): N12 - TUBULO-INTERSTITIAL NEPHRITIS, NOT SPCF ACUTE OR CHRONIC Status: Acute (3) Septic shock Code(s): A41.9 - SEPSIS, UNSPECIFIED ORGANISM; R65.21 - SEVERE SEPSIS WITH SEPTIC SHOCK Status: Acute - Plan Possible transfer to telemetry if okay with Dr. Love. Continue IV antibitics.Await bed.E Fecalis s to PCN, CIPRO and Vancomycin. The patient is allergic to CIPRO and PCN. Consult Dr. Murray for out patient IV vancomycin as it requires monitoring.ID will return on to give terminologist treatment guidelines of IV antibiotics
[2019-09-09 02:25] LABS: Vancomycin, Trough 13.2 ug/mL
[2019-09-09] MEDS: Vancomycin HCl 1.5 GM in Sodium Chloride 0.9% 250 ML 300 ML IVPB SCH (02:43)
[2019-09-09] MEDS: metFORMIN 500 MG TAB PO SCH ×2 (08:39→16:23)
[2019-09-09] MEDS: Lisinopril/Hydrochlorothiazide 20 mg/12.5 mg Tablet PO SCH (08:39)
[2019-09-09] MEDS: Phenazopyridine HCl 97.5 MG TABLET PO SCH ×3 (08:39→16:23)
[2019-09-09] MEDS: Atorvastatin Calcium 10 MG TAB PO SCH (08:39)
--- NOTE | 2019-09-09 14:56 | PRG ---
DATE OF SERVICE: 09/09/2019 SUBJECTIVE: The patient states that he is feeling fine. He is having no pain. He was stented by Dr. Tapia previously for sepsis. He is allergic to ciprofloxacin, penicillin, and is currently awaiting Infectious Disease consultation for decision on antibiotic treatment for his bacteremia. OBJECTIVE: VITAL SIGNS: Temperature 98.8, pulse 63, blood pressure 150/75, respirations 20, saturation 93% on room air. GENERAL: No apparent distress, communicative and alert. CARDIOVASCULAR: Regular rate and rhythm. ABDOMEN: Soft, nontender, and nondistended. Positive bowel sounds. EXTREMITIES: No clubbing, cyanosis, or edema. LABORATORY EVALUATION: Full set of labs are in the [facility] system, which I have reviewed. Of note, the most recent CBC is from September 05 showing a white count of 14.3. Most recent creatinine from today is 1.72, which is decreasing. ASSESSMENT AND PLAN: 69-year-old white male with ureteral stone and bacteremia with sepsis, status post ureteral stent by Dr. Tapia. The patient is previously established with me for prior kidney stones. He actually knows Dr. Tapia quite well and is personal friends with him from outside the hospital. The patient requested if he could be transferred for care to Dr. Tapia since he knows him well. I have no problem with this. I will go ahead and sign off on this patient and he will resume care with Dr. Tapia. He can see Dr. Tapia as an outpatient as well for his ureteroscopy and definitive stone management. For the time being, I do think that he should continue with his IV antibiotics until final decision is made on how he will receive his outpatient antibiotics by Infectious Disease. Other than that, there is nothing further for me to do on this admission. I will turn the case over to Dr. Tapia and I have notified him that the patient decides to follow up with him instead. Job ID: [id number]
--- NOTE | 2019-09-09 16:39 | PDOC.HOSPP ---
- Subjective Subjective: Seen and examined. Patient's setting up in the chair, in no apparent distress. Patient states that is feeling significantly better. Appetite coming back. Patient and I discussed the chronic nature of his nephrolithiasis with stone extraction in the past. Patient denies history of prior chronic kidney disease, does not follow up with nephrology. Patient on broad-spectrum IV antibiotics, with significant antibiotic allergies infectious disease consultation requested for antibiotic selection. - Objective Vital Signs & Weight: Vital Signs (12 hours) Temp Pulse Resp BP BP Pulse Ox 09/09/19 16:06 98.5 F 67 18 154/77 H 97 09/09/19 08:39 71 153/71 H 09/09/19 08:00 98.6 F 71 20 153/71 H 94 L Weight Admit Weight 234 lb 12.8 oz Weight 234 lb 12.8 oz Most Recent Monitor Data Heart Rate from ECG 80 NIBP 140/83 NIBP BP-Mean 102 Respiration from ECG 16 SpO2 95 I&O: 09/08/19 09/09/19 09/10/19 06:59 06:59 06:59 Intake Total 570 720 Output Total 100 Balance 470 720 Result Diagrams: 09/05/19 11:02 09/08/19 05:02 Additional Labs: Accuchecks 09/09/19 09/09/19 09/08/19 11:21 04:24 20:13 POC Glucose 120 H 117 H 145 H 09/08/19 17:08 POC Glucose 137 H Hospitalist ROS - Review of Systems All other systems reviewed; all pertinent +/- noted in HPI/Subj - Medication Medications: Active Medications Generic Name Dose Route Start Last Admin Trade Name Chidi PRN Reason Stop Dose Admin Atorvastatin Calcium 10 mg 09/08/19 09:00 09/09/19 08:39 Lipitor PO 10 mg DAILY CAROL Administration Lisinopril/HCTZ 1 tab 09/08/19 09:00 09/09/19 08:39 Prinizide 20-12.5 PO 1 tab DAILY CAROL Administration Vancomycin HCl 1.5 gm/ Sodium 300 mls @ 200 mls/hr 09/07/19 03:00 09/09/19 02 :43 Chloride IVPB 300 mls 0300 CAROL Administration Metformin HCl 500 mg 09/07/19 17:00 09/09/19 16:23 Glucophage PO 500 mg BID- CAROL Administration Phenazopyridine HCl 97.5 mg 09/05/19 18:00 09/09/19 16:23 Azo Standard PO 97.5 mg PC CAROL Administration Sodium Chloride 10 ml 09/06/19 21:00 09/09/19 08:39 Flush - Normal Saline IVF 10 ml Q12HR CAROL Administration Tramadol HCl 50 mg 09/07/19 11:57 09/08/19 20:58 Ultram PO 50 mg Q6H PRN Administration Pain - Exam General Appearance: NAD, awake alert Eye: PERRL ENT: normocephalic atraumatic, moist mucosa Neck: supple, symmetric, no lymphadenopathy Heart: no murmur, no gallops, no rubs Respiratory: CTAB, no wheezes, no rales, no ronchi, normal chest expansion Gastrointestinal: soft, non-tender, non-distended, no guarding, no rigidity Extremities: 2+ LE edema Skin: no lesions, no rashes Neurological: cranial nerve grossly intact, no weakness, no focal deficits Musculoskeletal: normal strength, no muscle wasting Psychiatric: normal affect, A&O x 3 Hosp A/P (1) ROSEANNA (acute kidney injury) Code(s): N17.9 - ACUTE KIDNEY FAILURE, UNSPECIFIED Status: Acute (2) CKD (chronic kidney disease) stage 3, GFR 30-59 ml/min Code(s): N18.3 - CHRONIC KIDNEY DISEASE, STAGE 3 (MODERATE) Status: Chronic (3) Nephrolithiasis Status: Acute (4) Pyelonephritis Code(s): N12 - TUBULO-INTERSTITIAL NEPHRITIS, NOT SPCF ACUTE OR CHRONIC Status: Acute (5) Septic shock Code(s): A41.9 - SEPSIS, UNSPECIFIED ORGANISM; R65.21 - SEVERE SEPSIS WITH SEPTIC SHOCK Status: Acute - Plan Plan: medical unit urology consultation, recommendations appreciated infectious disease consultation, recommendations appreciated nephrology consultation, recommendations appreciated status post stent placement for nephrolithiasis will need stent extraction in the upcoming weeks on broad-spectrum IV antibiotics Urine cultures and blood cultures noted patient chronic stone former, will benefit from nephrology follow up on medical management to avoid future stone formation and chronic kidney disease continue home medications as able blood pressure control continue current plan of care
--- NOTE | 2019-09-09 21:46 | CON ---
DATE OF CONSULTATION: 09/09/2019 REASON FOR CONSULTATION: Bacteremia. HISTORY OF PRESENT ILLNESS: A 69-year-old who has a history of type 2 diabetes, hypertension, and nephrolithiasis with first episode about a year ago, managed by Dr. Tapia. More recently, he developed pain, was diagnosed with nephrolithiasis, which failed conservative management and then he was admitted septic, had an emergency stent placed by Dr. Tapia. This was in the right ureter and Enterococcus faecalis has been retrieved from 2 sets of blood cultures and urine culture. He does have a history of penicillin allergy, but it has been decades ago. He is on vancomycin and seems to be responding well. Denies any headaches. No shortness of breath. Feeling much better now. No abdominal pain or diarrhea. No more flank pain. No dysuria. No bleeding. No joint symptoms. PAST MEDICAL HISTORY: Type 2 diabetes, hypertension, nephrolithiasis. PAST SURGICAL HISTORY: Right TKR, tonsillectomy. SOCIAL HISTORY: Former smoker. Drinks occasionally. FAMILY HISTORY: Noncontributory. ALLERGIES: PENICILLIN, ACTUALLY IT IS MORE THAN 40 YEARS AGO AND HE DOES NOT EVEN RECALL WHAT IT WAS. CURRENT MEDICATION LIST: Includes: 1. Lipitor. 2. Dextrose. 3. Glucagon. 4. Prinzide. 5. Insulin. 6. Glucophage. 7. Azo-Standard. 8. Tramadol. 9. Vancomycin. PHYSICAL EXAMINATION: VITAL SIGNS: He has been afebrile throughout the hospital stay. Other vital signs are normal. SKIN: Normal. The patient has peripheral IV access. No lymphadenopathy. HEENT: Ocular movements conjugate. Oral cavity normal. NECK: Supple. LUNGS: Symmetric, clear breath sounds. HEART: S1, S2. Regular rate. No S3 or S4. ABDOMEN: Soft, not distended or tender. No ascites. No bladder distention. No joint inflammatory activity. NEURO: Nonfocal. LABORATORY DATA: White cell count is down to 14.3, hemoglobin 11, platelets 162 with 87% neutrophils and creatinine is at 1.72, which is markedly improved compared with September 03 when it was 4.35. Vancomycin trough 13.2. Microbiology with E faecalis with usual susceptibility profile. CT of abdomen and pelvis with stone. ASSESSMENT: Type 2 diabetes and nephrolithiasis obstructed with pyelonephritis and sepsis, improved now. There was acute renal failure, which is improving steadily. DISCUSSION: The patient will need continuation of IV and antimicrobial therapy. For simplicity sake will continue with vancomycin in the outpatient setting. We will go ahead and insert PICC line, planning for discharge tomorrow and we will set up treatment through my office. Treatment to continue until removal of obstructing stone. Job ID: [id number] MTDD
[2019-09-10] MEDS: Vancomycin HCl 1.5 GM in Sodium Chloride 0.9% 250 ML 300 ML IVPB SCH (02:25)
[2019-09-10] MEDS: traMADol HCl 50 MG TAB PO PRN (03:51)
[2019-09-10 03:58] LABS: Bilirubin Negative (Negative); Blood, Urine 2+ (Negative); Clarity Clear (Clear); Glucose, Urine (Dipstick) Normal (Negative); Leukocyte Negative Leu/uL (Negative); Nitrite 1+ (Negative); Protein, Urine (Dipstick) Negative (Neg-Trace); RBC/HPF 21-50 HPF (0-3); Squamous Epithelial 0-3 HPF (0-3); Urobilinogen Normal mg/dL (Less than 2)
[2019-09-10 04:10] LABS: Creatinine, Urine 53.54 mg/dL (63-166); Protein, Urine Random Quant Less than 10 mg/dL (1-14); Sodium, Urine 78 mmol/L (Not Available); Urea Nitrogen, Random Urine 273 mg/dl
[2019-09-10 04:11] LABS: Bacteria/HPF 1+ HPF (None Seen)
[2019-09-10 07:06] LABS: #Eosinphils 0.5 thou/uL (0.0-0.7); #Lymphocytes 1.3 thou/uL (1.20-3.40); #Monocytes 0.9 thou/uL (0.11-0.59); #Neutrophils 5.2 thou/uL (1.40-6.50); %Basophils 0.3 % (0.0-1.0); %Eosinophils 5.8 % (0.0-10.0); %Lymphocytes 16.3 % (21.0-51.0); %Neutrophils 66.5 % (42.0-75.0); Hemoglobin 11.7 g/dL (14.0-18.0); Mean Corpuscular Hemoglobin 29.5 pg (27.0-31.0); Mean Corpuscular Volume 86.8 fL (78.0-98.0); Mean Platelet Volume 7.7 fL (7.4-10.4); Platelet Count 227 thou/uL (130-400); RBC Distribution Width 12.4 % (11.5-14.5); Red Blood Cell (RBC) Count 3.94 mill/uL (4.70-6.10); White Blood Cell (WBC) Count 7.8 thou/uL (4.8-10.8)
[2019-09-10 07:25] LABS: Anion Gap 11 mmol/L (10-20); BUN (Urea Nitrogen) 16 mg/dL (8.4-25.7); Calc. Creatinine Clearance 58 mL/min (70-130); Calcium 9.3 mg/dL (7.8-10.44); Carbon Dioxide 28 mmol/L (23-31); Chloride 102 mmol/L (98-107); Estimated GFR-MDRD 37; Glucose 123 mg/dL (80-115); Sodium 137 mmol/L (136-145)
[2019-09-10] MEDS: metFORMIN 500 MG TAB PO SCH (08:47)
[2019-09-10] MEDS: Phenazopyridine HCl 97.5 MG TABLET PO SCH ×2 (08:47→12:06)
[2019-09-10] MEDS: Atorvastatin Calcium 10 MG TAB PO SCH (08:47)
--- NOTE | 2019-09-10 10:19 | ULT ---
BILATERAL LOWER EXTREMITY VENOUS DOPPLER EVALUATION PROVIDED CLINICAL HISTORY: Bilateral lower extremity edema TECHNIQUE: Grayscale, color doppler and spectral doppler images were obtained of the common femoral , femoral, profunda femoral, popliteal and posterior tibial veins of both lower extremities. FINDINGS: There is normal compression, flow and augmentation seen within the deep venous structures of the left lower extremity. There is diminished compression and flow seen within the mid right posterior tibial vein suspicious for nonocclusive thrombus. IMPRESSION: Nonocclusive thrombus seen within the mid right posterior tibial vein. No evidence of DVT in the left lower extremity.
--- NOTE | 2019-09-10 10:41 | SPC ---
SPC CVP LINE PICC INITAL >5 History: Need for long-term IV access Comparison: None. Findings: Patient was brought to the specials suite. All questions were answered. Informed consent wa s obtained. Timeout performed. The patient's left upper quadrant was prepped and draped in normal sterile fashion. Using ultrasound guidance the left brachial vein was accessed with the left basilic vein was too small to safely utilized. Over a wire and through a peel-away sheath using fluoroscopic guidance a PICC was placed wi th tip in good position. Patient tolerated the procedure well without complication. Impression: Technically successful ultrasound and fluoroscopic guided PICC placement.
[2019-09-10] MEDS ORDERED: Apixaban 5 MG TAB PO SCH ×2 (12:45→21:00)
--- NOTE | 2019-09-10 13:15 | CON ---
DATE OF CONSULTATION: 09/10/2019 REASON FOR CONSULTATION: Acute renal failure. REQUESTING PHYSICIAN: Dr. Adal Pemberton. HISTORY OF PRESENT ILLNESS: A 69-year-old male patient with known history of hypertension, CKD, and nephrolithiasis, admitted with acute onset of falls and syncope associated with diaphoresis and hypotension. The patient was felt to have septic shock requiring aggressive IV fluid therapy and pressors initially. He was seen by Urology, and he is status post a cystoscopy with stent placement. Nephrology consult was requested for management of acute kidney injury superimposed on CKD 3. The patient was admitted on September 03 with peak creatinine of 4.35 on admission which has trended down up to a fidencio of 1.72, but had gone up today to 1.81. Review of medical records showed that baseline creatinine is 1.2 to 1.4. The patient reports feeling better, but reported bilateral leg edema. He denied nausea or vomiting. He, however, admitted to intermittent diarrhea illness which was initially thought to be diverticulitis and improved following antibiotic therapy. Currently, he is not having any diarrhea illness. He denied hematuria, dysuria, abdominal distention, shortness of breath, palpitation, chest pain, or focal weakness. PAST MEDICAL HISTORY: 1. Hypertension. 2. Nephrolithiasis. 3. CKD stage 3. 4. Prediabetes. PAST SURGICAL HISTORY: Right knee surgery and tonsillectomy. FAMILY HISTORY: Reviewed, but noncontributory. SOCIAL HISTORY: The patient lives with family. He is a former smoker, but quit about 30 years ago. Occasionally drinks alcohol, but denied recreational drug use. ALLERGIES: PENICILLIN AND CIPROFLOXACIN. PRIOR TO HOSPITAL MEDICATIONS: 1. Lipitor 10 mg p.o. daily. 2. Fluticasone propionate 16 one spray inhalation daily. 3. Lisinopril/hydrochlorothiazide 20/12.5 mg tablets 1 tablet daily. 4. Metformin 500 mg p.o. b.i.d. CURRENT HOSPITAL MEDICATIONS: 1. Vancomycin 1.5 g b.i.d. 2. Lipitor 10 mg p.o. daily. 3. Lisinopril/hydrochlorothiazide 20/12.5 one tablet daily. 4. Metformin 500 mg p.o. b.i.d. 5. Phenazopyridine 97.5 mg p.o. daily. 6. Sliding scale insulin. 7. Tramadol 50 mg q.6 p.r.n. for pain. REVIEW OF SYSTEMS: A 12-point review of system performed was negative other than pertinent positives and negatives included in the History of Present Illness. PHYSICAL EXAMINATION: VITAL SIGNS: Temperature 98.6, pulse 62, respiratory rate 20, SpO2 of 96% on room air, blood pressure is 128/76. GENERAL: Healthy-looking male, in no obvious distress. Afebrile. Anicteric. Acyanotic. HEENT: Normocephalic, atraumatic. Oral mucosa is moist. NECK: Supple. Nontender with good range of motion. No JVD or masses appreciated. CARDIOVASCULAR: Regular rhythm and rate with normal heart sounds 1 and 2. RESPIRATORY: Good air entry bilaterally with no obvious crackle or rhonchi or use of accessory muscles. GI: Full, soft, nontender, nondistended with normal bowel sounds. EXTREMITIES: Moderate bilateral leg edema noted. No obvious erythema was appreciated. TAR HEATER: Conscious, alert, oriented x3 with appropriate mental status. Cranial nerves 2 through 12 are grossly intact. PSYCHIATRIC: Normal affect with appropriate mentation and good insight. Cooperative. DIAGNOSTIC DATA: CBC today showed WBC count of 7.8, hemoglobin of 11.7, MCV of 86.8, platelet of 227. Of note, WBC count is down from 16 on admission. BMP showed sodium 137, potassium 4.0, chloride 102, CO2 of 28, BUN 16, creatinine 1.81, glucose 123, calcium 9.3. Of note, creatinine has gone down from 4.35 on admission. Urinalysis showed dark yellow urine with pH of 6.0, specific gravity of 1.008, positive blood and nitrite. Leukocyte esterase was negative as well as also negative were bilirubin, ketones, and protein. Microscopy showed 21-50 RBC and 4-6 WBC with 1+ bacteria. Urine protein was less than 10. Urine creatinine is 53.5. Urine sodium 78 and urine urea 273. Vancomycin trough on September 09 was 13.2. ASSESSMENT: 1. Acute kidney injury: Multifactorial in etiology from septic shock, obstructive uropathy, pyelonephritis, superimposed on chronic kidney disease stage 3. The patient also was on lisinopril and diuretic at presentation. Creatinine has improved from 4.35 on admission to 1.81 today, however, it is not yet back to baseline. Persistent of obstructive uropathy or lisinopril use are the possible differentials. Oral intake is adequate. In fact, the patient has bilateral leg edema. Vancomycin-induced toxicity is another concern, though vancomycin trough yesterday was only 13. 2. Chronic kidney disease stage 3. 3. Hypertension: Control is fair. 4. Pyelonephritis, on treatment. 5. Nephrolithiasis. 6. Resolved septic shock. 7. Prediabetes, on metformin. 8. Bilateral leg edema: Concerning for deep vein thrombosis given absence of proteinuria in urine. Of note, the patient on admission had no leg edema. PLAN: 1. We will discontinue lisinopril and hydrochlorothiazide. 2. If blood pressure is elevated, we will start with low-dose amlodipine to get blood pressure control adequate. 3. We will get bilateral lower extremity ultrasounds to rule out DVT. 4. We will get repeat renal ultrasound if renal function remains elevated. We will repeat renal function in the morning. Many thanks for involving us in the care of this patient. We will follow along with you. Job ID: [id number]
[2019-09-10 17:10] VITALS: BP 169/90; TEMP 98.7
--- NOTE | 2019-09-10 21:46 | DIS ---
DATE OF ADMISSION: 09/04/2019 DATE OF DISCHARGE: 09/10/2019 REASON FOR HOSPITALIZATION: Nephrolithiasis with severe sepsis and septic shock. SIGNIFICANT FINDINGS: The patient with nephrolithiasis, was taken to the operating room by Dr. Tapia on 09/03/2019 - please see full operative report for details. The patient tolerated the procedure well without intraoperative complications. The patient with cystoscopy with right retrograde and right stent placement - please see full operative report for details. The patient admitted to the intensive care unit for close monitoring. The patient had aggressive management of sepsis including IV antibiotics, IV fluid resuscitation, and maximum medical therapy. With maximum medical therapy, the patient did improve over his hospitalization and was recommended safe for discharge by all specialists on 09/10/2019. CONDITION ON DISCHARGE: Stable. SPECIFIC INSTRUCTIONS FOR THE PATIENT/FAMILY: 1. The patient is recommended to take all medications as directed, to be re-evaluated by primary care physician, Nephrology, and Urology in the outpatient setting in the next 1 to 2 weeks. 2. The patient is recommended to follow up with primary care physician in the next 1 to 2 weeks. 3. The patient is recommended follow up with Nephrology in the outpatient setting in the next 1 to 2 weeks. 4. The patient is recommended to follow up with Urology in the outpatient setting for further management on stent removal and further plan of care for nephrolithiasis. 5. The patient is recommended to follow up with all other specialists as directed. 6. The patient is recommended to return to acute care hospital immediately if signs or symptoms return, worsen, or any other new symptoms occur. DISCHARGE MEDICATIONS: Please see full discharge medication list for details. 1. Eliquis 10 mg one tablet p.o. b.i.d. for 7 days, followed by 5 mg p.o. b.i.d. thereafter. 2. Atorvastatin 10 mg one tablet p.o. daily. 3. Metformin 500 mg one tablet p.o. b.i.d. 4. Vancomycin infusion daily per Infectious Disease specialist. 5. The patient is recommended to discontinue home medications, including lisinopril/hydrochlorothiazide. Mr. Conway is a very pleasant 69-year-old gentleman who presents to [facility] on 09/03/2019 with kidney stones, septic shock in addition to nausea and vomiting. The patient admitted to the intensive care unit for close monitoring. The patient had aggressive volume resuscitation for blood pressure control and was taken to the operating room by Dr. Tapia on 09/03/2019 - please see full operative report for details. The patient had cystoscopy with right retrograde and right-sided stent placement - please see full operative report for details. The patient tolerated the procedure well without intraoperative complications. The patient with nephrolithiasis, did develop acute kidney injury with a creatinine maximum of 4.35 on admission. With aggressive IV fluid resuscitation, the patient's renal function did downtrend to a baseline of creatinine 1.8 on the day of discharge, 09/10/2019. The patient was seen and evaluated by Nephrology and recommended outpatient followup with Nephrology in the outpatient setting. The patient had an ultrasound of the lower extremities, please see full report for details, there was identified to have a nonocclusive thrombus in the right mid posterior tibial vein. The patient was placed on Eliquis in the [facility] hospital for this. The patient was recommended safe for discharge by all specialists with close followup in the outpatient setting. This was done on 09/10/2019. Infectious Disease specialist was consulted for antibiotic management and recommended continuing IV vancomycin infusions due to the resistance pattern on the patient's Enterococcus faecalis and Staphylococcus aureus found in urine culture in addition to the Enterococcus faecalis found in the blood. Antibiotics adjusted appropriately by Infectious Disease specialist and recommended to complete a full course for resolution of urinary tract infection. The patient recommended safe for discharge by all specialists on 09/10/2019 with close followup in the outpatient setting. The patient recommended to follow up with primary care physician, Urology, Nephrology, and Infectious Disease specialist in the next 1 to 2 weeks. The patient recommended to take all medications as directed, to be re-evaluated by all specialists in the outpatient setting. The patient is recommended to return to [facility] hospital immediately if signs or symptoms return, worsen, or any other new symptoms occur. TIME SPENT: Greater than 40 minutes spent coordinating care and discharge process for this patient. Job ID: [id number]
== END 2019-09-10 17:07 | disposition home health service (06) | DRG 853 ==
LOC: ERS 20:58 → T4-A 22:22 → SDC 22:25 → CCU 09-04 00:05 → T4-A 09-06 13:53
PROVIDERS: ADMIT Internal Medicine; ATTEND Internal Medicine
PROC: 0T768DZ Dilation of Right Ureter with Intraluminal Device, Via Natural or Artificial Opening Endoscopic (ICD-10-PCS; principal; 2019-09-03)
PROC: 02HV33Z Insertion of Infusion Device into Superior Vena Cava, Percutaneous Approach (ICD-10-PCS; 2019-09-10)
PROC: B548ZZA Ultrasonography of Superior Vena Cava, Guidance (ICD-10-PCS; 2019-09-10)
DX: A41.9 Sepsis, unspecified organism (principal); R65.21 Severe sepsis with septic shock; N17.9 Acute kidney failure, unspecified; N13.6 Pyonephrosis; I82.441 Acute embolism and thrombosis of right tibial vein; F32.9 Major depressive disorder, single episode, unspecified; I12.9 Hypertensive chronic kidney disease with stage 1 through stage 4 chronic kidney disease, or unspecified chronic kidney disease; N18.3 Chronic kidney disease, stage 3 (moderate); B95.2 Enterococcus as the cause of diseases classified elsewhere; E11.22 Type 2 diabetes mellitus with diabetic chronic kidney disease; B95.61 Methicillin susceptible Staphylococcus aureus infection as the cause of diseases classified elsewhere
CPT/HCPCS: 36415; 36416; 36556; 36569; 71045; 76000; 80048; 80053; 80202; 81001; 82570; 83605; 84156; 84300; 84540; 85025; 87040; 87045; 87046; 87077; 87086; 87149; 87186; 87324; 87427; 87449; 93970; 94760; 96374; 96375; 99214; C1751; C1758; G0463; J0696; J2001; J2370; J2405; J2704; J2930; J3370; J3490; J7050; J7070

== ENCOUNTER 2019-09-15 15:03 | Outpatient (CLI) | payer MEDICARE ==
--- NOTE | 2019-09-15 15:35 | ULT ---
Exam: Right lower extremity venous ultrasound with Doppler HISTORY: Patient had a previous thrombus in the posterior tibial vein. Patient is on blood thinners. Evaluate for residual clot. Comparison 09/10/2019 TECHNIQUE: Grayscale, color flow, Doppler imaging and spectral waveform analysis performed the right lower extreme venous system FINDINGS: There is compressibility, presence of flow and augmentation in the common femoral vein, fem oral vein and popliteal vein. There is flow the greater status vein and profunda femoral vein. There is compressibility and flow in the posterior tibial vein. No evidence of residual thrombus IMPRESSION: 1. No evidence of residual thrombus in the right posterior tibial vein. 2. No evidence of thrombus in the right lower extreme venous system Transcribed Date/Time: 09/15/2019 3:38 PM
--- NOTE | 2019-09-15 15:45 | RAD ---
Exam: One view abdomen COMPARISON: None HISTORY: Nephrolithiasis FINDINGS: 2 separate punctate calcifications project along the lower pole right renal silhouette satya uring 0.4 and 0.6 cm respect. Nonspecific bowel gas pattern. Appropriate position of a right-sided double-J ureteral stent. No osseous abnormalities Nonspecific calcification left the pelvis IMPRESSION: 1. 2 separate right renal calculi. 2. Appropriate positioning of a right renal stent
== END 2019-09-15 15:04 | disposition home or self-care (01) ==
LOC: ULT 15:03
PROVIDERS: ATTEND Internal Medicine Infectious Disease
DX: R22.41 Localized swelling, mass and lump, right lower limb (principal); N20.0 Calculus of kidney; Z96.0 Presence of urogenital implants
CPT/HCPCS: 74018

== ENCOUNTER 2019-09-22 05:52 | Day surgery (SDC) | payer MEDICARE ==
[2019-09-21 13:22] VITALS: BMI 27.8
[2019-09-22] MEDS ORDERED: Iothalamate Meglumine 60% 50 ML VIAL FS ONE (07:01)
[2019-09-22 07:04] LABS: Hemoglobin 11.7 g/dL (14.0-18.0); Mean Corpuscular HGB CONC 33.2 g/dL (32.0-36.0); Mean Corpuscular Volume 87.3 fL (78.0-98.0); Mean Platelet Volume 8.1 fL (7.4-10.4); Platelet Count 195 thou/uL (130-400); Red Blood Cell (RBC) Count 4.05 mill/uL (4.70-6.10); White Blood Cell (WBC) Count 5.2 thou/uL (4.8-10.8)
[2019-09-22 07:20] LABS: EPI 112 SEC (67-199); Platelet Count 185 thou/uL (130-400)
[2019-09-22 07:27] LABS: Anion Gap 12 mmol/L (10-20); BUN (Urea Nitrogen) 14 mg/dL (8.4-25.7); Calc. Creatinine Clearance 53 mL/min (70-130); Calcium 9.3 mg/dL (7.8-10.44); Carbon Dioxide 24 mmol/L (23-31); Chloride 108 mmol/L (98-107); Estimated GFR-MDRD 37; Glucose 109 mg/dL (80-115); Potassium 3.7 mmol/L (3.5-5.1); Sodium 140 mmol/L (136-145)
[2019-09-22] MEDS ORDERED: Fentanyl 100 MCG/2 ML VIAL ONE (08:56)
[2019-09-22] MEDS ORDERED: ePHEDrine/0.9% NaCl/PF SYRINGE 50 mg/10 ml ONE (09:43)
[2019-09-22] MEDS ORDERED: Lidocaine 1% PF 5 ML VIAL ONE (09:43)
[2019-09-22] MEDS ORDERED: PROPOFOL 200 MG/20 ML VIAL ONE (09:43)
[2019-09-22] MEDS ORDERED: Sodium Chloride 0.9% 10 ML ONE (11:05)
--- NOTE | 2019-09-22 11:57 | OP ---
DATE OF PROCEDURE: 09/22/2019 PREOPERATIVE DIAGNOSIS: Right renal stones. POSTOPERATIVE DIAGNOSIS: Right renal stones. PROCEDURE PERFORMED: Right renal extracorporeal shockwave lithotripsy. ANESTHESIA: General. ESTIMATED BLOOD LOSS: Not recorded. FINDINGS: There were 2 stones that were kind of grouped together right around the coil of the stent. These were treated with a total of 2500 shocks at kV level of 4 to level 5. They appeared to fragment well, they spread out and kind of lost there, distinctness. Stent was not removed. DESCRIPTION OF PROCEDURE: After obtaining written and verbal consent from the patient, after starting IV vancomycin, after documenting normal preoperative blood work and platelet function assay, he was taken to the operating suite. He was placed in the supine position on the treatment table. PlexiPulses were placed on his lower extremities and turned on. He was given a general anesthetic and oral obturator intubation. He was coupled to the lithotripsy unit and the stone was placed in treatment focal point. Shockwave therapy was commenced and started at very low kV after couple of 100 shocks. There was a 5-minute pause given. The KUB was then brought up to level 4 and then when we hit 1500 shocks alternating level 4 and level 5 for the last 1000 shocks. We used fluoroscopy intermittently to document stone fragmentation and reposition as necessary. After the 2500 shocks, the procedure was terminated. He was awakened, extubated, and taken by delisa to recovery room. Job ID: [id number]
== END 2019-09-22 11:25 | disposition home or self-care (01) ==
LOC: SDC 05:52
PROVIDERS: ATTEND Urology
PROC: 0TFBXZZ Fragmentation in Bladder, External Approach (ICD-10-PCS; principal; 2019-09-22)
DX: N20.0 Calculus of kidney (principal); I10 Essential (primary) hypertension; E11.9 Type 2 diabetes mellitus without complications; K21.9 Gastro-esophageal reflux disease without esophagitis; Z88.0 Allergy status to penicillin; Z88.1 Allergy status to other antibiotic agents
CPT/HCPCS: 36415; 80048; 85027; 85576; J0131; J2001; J2704; J3010; J3370

== ENCOUNTER 2019-10-04 09:16 | Day surgery (SDC) | payer MEDICARE ==
[2019-10-01 11:38] VITALS: BMI 27.8
[2019-10-04] MEDS ORDERED: Iothalamate Meglumine 60% 50 ML VIAL FS ONE (09:29)
[2019-10-04] MEDS ORDERED: Sodium Chloride 0.9% 100 ML ONE (09:32)
[2019-10-04] MEDS ORDERED: cefTRIAXone\\ROCEPHIN 1 GM VIAL ONE (09:32)
[2019-10-04] MEDS ORDERED: Glycopyrrolate 0.2 MG/ML 5 ML SYRINGE ONE (09:40)
[2019-10-04] MEDS ORDERED: PHENYLEPHRINE-NS 100 MCG/ML 10 ML SYRINGE ONE (09:40)
[2019-10-04] MEDS ORDERED: Lidocaine 1% PF 5 ML VIAL ONE (09:40)
[2019-10-04] MEDS ORDERED: ePHEDrine/0.9% NaCl/PF SYRINGE 50 mg/10 ml ONE (09:40)
[2019-10-04] MEDS ORDERED: PROPOFOL 200 MG/20 ML VIAL ONE (09:40)
[2019-10-04] MEDS ORDERED: Rocuronium Bromide 10 MG/ML (10ML VIAL) ONE (09:40)
[2019-10-04] MEDS ORDERED: Ondansetron PF 4 MG/2 ML Vial ONE (09:40)
[2019-10-04] MEDS ORDERED: Dexamethasone 20 MG/5 ML VIAL ONE (09:40)
[2019-10-04] MEDS ORDERED: Fentanyl 100 MCG/2 ML VIAL ONE ×3 (09:49→13:02)
[2019-10-04] MEDS ORDERED: Midazolam HCl 2 mg/2 ml Vial ONE (10:28)
[2019-10-04 10:37] LABS: Calcium 9.4 mg/dL (7.8-10.44); Carbon Dioxide 28 mmol/L (23-31); Chloride 106 mmol/L (98-107); Glucose 117 mg/dL (80-115); Sodium 141 mmol/L (136-145)
[2019-10-04 10:38] LABS: Anion Gap 11 mmol/L (10-20); BUN (Urea Nitrogen) 16 mg/dL (8.4-25.7); Calc. Creatinine Clearance 51 mL/min (70-130); Estimated GFR-MDRD 35
[2019-10-04] MEDS ORDERED: Hyoscyamine Sulfate SL 0.125 mg Tablet ONE (13:56)
--- NOTE | 2019-10-04 14:09 | OP ---
DATE OF PROCEDURE: 10/04/2019 PREOPERATIVE DIAGNOSIS: Right ureteral and renal stones. POSTOPERATIVE DIAGNOSIS: Right ureteral and renal stones. PROCEDURES PERFORMED: Right ureteroscopy, flexible, with laser lithotripsy and stone retrieval. ANESTHETIC: General. ESTIMATED BLOOD LOSS: Less than 50. DRAINS PLACED: A 4.8 x 26-Pakistani double-J stent with a string attached. FINDINGS: There were numerous stone fragments in the proximal ureter, renal pelvis, and lower pole of the right kidney. DESCRIPTION OF PROCEDURE: Obtained written and verbal consent from the patient. After receiving IV antibiotics, he was taken to the operating suite. He was placed in a supine position on the treatment table. PlexiPulses were placed on his lower extremities and turned on. He was given a general anesthetic and oral intubation. He was placed in the dorsal lithotomy position. He was sterilely prepped and draped for cystoscopy and fluoroscopic unit was placed appropriately over him to visualize the ureter and the kidney on the right side. Cystoscopy was performed with a 22-Pakistani sheath. This was well lubricated and passed under direct vision through the male urethra into the urinary bladder. There were some annular strictures, but they were all easily passed with a 22-Pakistani sheath. The bladder was filled and emptied a few times. There were a few stone fragments in the bladder. These were washed out, but not saved. The distal end of the double-J stent was grasped, brought out through the urethral meatus, and a guidewire was fed through and up in the region of the renal pelvis. The stent was removed over the guidewire and discarded. The dual lumen catheter was brought in and fed over this wire up into the proximal ureter and a second guidewire that was blue Stiff wire was placed through the other port of the dual lumen and then the dual-lumen catheter was removed, leaving both the green wire and the blue wire in place. We then brought in mid-sized ureteral sheath with obturator. These easily went up into the proximal ureter. We then removed the obturator and then fed our flexible ureteroscope over the blue wire and up into the area of the renal pelvis and the wire was removed. We then went ahead and examined with a flexible ureteroscope. All the above areas of stone fragments were seen in the proximal ureter and the renal pelvis, moving up towards the upper calyceal system and also in the lower calyceal system. These areas were fragmented with a small caliber holmium laser until they were small enough to either be deemed very, very easy to pass or once that we could remove with a Nitinol basket, which we did get 3 of 4 decent size fragments to sent for stone analysis. After this was completed, we looked at all the calyceal system, saw no sizable stone fragments remaining, there was some dust. We looked at the proximal ureter, the mid ureter, and distal ureter as we removed the sheath and the ureteroscope, leaving the green guidewire still up in place. At this point, we back-loaded our guidewire through our cystoscope and passed a 5-Pakistani Pollack catheter through this and up in the region of the renal pelvis. We then filled this with contrast, then replaced the guidewire, removed the open-ended catheter, and placed a stent. Unfortunately, the string on the stent got hooked on the ureteroscope and pulled out, so part way, so I had to repeat the stent placement, which we did at the end without complication. Retrograde state at that time showed no evidence of extravasation or injury to the ureter or any persistent filling defect. A string was left, exiting the urethral meatus to allow us to remove it easily in the office. The patient was awakened, extubated, and taken by stretcher to the recovery room. Job ID: [id number]
== END 2019-10-04 16:15 | disposition home or self-care (01) ==
LOC: SDC 09:16
PROVIDERS: ATTEND Urology
PROC: 0TF38ZZ Fragmentation in Right Kidney Pelvis, Via Natural or Artificial Opening Endoscopic (ICD-10-PCS; principal; 2019-10-04)
PROC: 0T768DZ Dilation of Right Ureter with Intraluminal Device, Via Natural or Artificial Opening Endoscopic (ICD-10-PCS; 2019-10-04)
DX: N20.2 Calculus of kidney with calculus of ureter (principal); I10 Essential (primary) hypertension; E11.9 Type 2 diabetes mellitus without complications; Z79.01 Long term (current) use of anticoagulants; Z79.84 Long term (current) use of oral hypoglycemic drugs; Z79.899 Other long term (current) drug therapy; Z88.0 Allergy status to penicillin; Z88.1 Allergy status to other antibiotic agents
CPT/HCPCS: 51798; 52356; 76000; 80048; 82365; 88300; C1758; 36415; J0696; J1100; J2001; J2250; J2405; J2704; J3010; J3370; J3490

== ENCOUNTER 2020-05-08 10:23 | Outpatient (CLI) | payer MEDICARE ==
--- NOTE | 2020-05-08 11:09 | RAD ---
SUPINE ABDOMEN: HISTORY: Renal calculi. COMPARISON: Comparison is made to 09/29/2019. FINDINGS: The right ureteral stent has been removed. Bowel content obscures detail and there is poor exposure. The renal calculi seen on the prior exam i s not definitely identified today. Phleboliths in the pelvis are stable. IMPRESSION: Under-exposure limits detail and there is bowel content obscuring the renal outlines. No definite re nal calcification identified. POS: AH
== END 2020-05-08 10:24 | disposition home or self-care (01) ==
LOC: SCSRAD 10:23
PROVIDERS: ATTEND Urology
DX: N20.0 Calculus of kidney (principal)
CPT/HCPCS: 74018

== ENCOUNTER 2021-08-24 10:47 | Emergency (ER) | payer MEDICARE ==
[2021-08-24] MEDS ORDERED: Ondansetron PF 4 MG/2 ML Vial ONE (11:09)
[2021-08-24] MEDS ORDERED: Morphine 4 MG/ML VIAL ONE (11:09)
[2021-08-24 11:33] LABS: #Eosinphils 0.3 thou/uL (0.0-0.7); #Lymphocytes 1.3 thou/uL (1.20-3.40); #Monocytes 0.6 thou/uL (0.11-0.59); #Neutrophils 5.6 thou/uL (1.40-6.50); %Basophils 0.3 % (0.0-1.0); %Eosinophils 3.5 % (0.0-10.0); %Lymphocytes 16.2 % (21.0-51.0); %Monocytes 7.9 % (0.0-10.0); %Neutrophils 72.1 % (42.0-75.0); Hemoglobin 14.3 g/dL (14.0-18.0); Mean Corpuscular HGB CONC 32.9 g/dL (32.0-36.0); Mean Corpuscular Hemoglobin 29.2 pg (27.0-31.0); Mean Corpuscular Volume 88.8 fL (78.0-98.0); Mean Platelet Volume 8.1 fL (7.4-10.4); Platelet Count 200 thou/uL (130-400); RBC Distribution Width 11.7 % (11.5-14.5); White Blood Cell (WBC) Count 7.7 thou/uL (4.8-10.8)
[2021-08-24 11:55] LABS: ALT (SGPT) 17 U/L (8-55); AST (SGOT) 17 U/L (5-34); Albumin 4.3 g/dL (3.4-4.8); Alkaline Phosphatase 76 U/L (40-110); Anion Gap 15 mmol/L (10-20); BUN (Urea Nitrogen) 22 mg/dL (8.4-25.7); Bilirubin, Total 0.7 mg/dL (0.2-1.2); Calc. Creatinine Clearance 0 mL/min (70-130); Calcium 9.7 mg/dL (7.8-10.44); Carbon Dioxide 26 mmol/L (23-31); Chloride 100 mmol/L (98-107); Glucose 133 mg/dL (83-110); Lipase 37 U/L (8-78); Potassium 3.6 mmol/L (3.5-5.1); Protein, Total 7.3 g/dL (5.8-8.1); Sodium 137 mmol/L (136-145)
[2021-08-24 14:11] LABS: Bacteria/HPF 4+ HPF (None Seen); Bilirubin Negative (Negative); Blood, Urine Negative (Negative); Clarity Turbid (Clear); Glucose, Urine (Dipstick) Normal (Negative); Ketone, Urine Negative (Negative); Leukocyte 500 Leu/uL (Negative); Nitrite Negative (Negative); Protein, Urine (Dipstick) 10 mg/dL (Neg-Trace); RBC/HPF 0-3 HPF (0-3); Specific Gravity, Urine 1.019 (1.002-1.036); Squamous Epithelial 0-3 HPF (0-3); Urobilinogen Normal mg/dL (Less than 2); WBC/HPF Greater than 50 HPF (0-3)
== END 2021-08-24 14:38 | disposition home or self-care (01) ==
LOC: ERS 10:47
DX: N39.0 Urinary tract infection, site not specified (principal); R79.89 Other specified abnormal findings of blood chemistry; I10 Essential (primary) hypertension; E11.9 Type 2 diabetes mellitus without complications
CPT/HCPCS: 71045; 74176; 80053; 81003; 81015; 83605; 83690; 84484; 85025; 93005; 96374; 96375; J2270; J2405

== ENCOUNTER 2021-08-27 14:52 | Inpatient (IN) | payer MEDICARE ==
[~2021-08-27 14:52] MED LIST changes: +Iopamidol-370 76% 500 ML 1 ML ONE; -Lidocaine 1% PF 5 ML VIAL ONE; -Ondansetron PF 4 MG/2 ML Vial ONE; -PHENYLEPHRINE-NS 100 MCG/ML 10 ML SYRINGE ONE; -PROPOFOL 200 MG/20 ML VIAL ONE; -Succinylcholine Chloride 20 MG/ML 10 ml SYRINGE FS ONE; -ePHEDrine 50 MG/ML VIAL ONE
[2021-08-27 15:45] LABS: #Eosinphils 0.2 thou/uL (0.0-0.7); #Lymphocytes 0.9 thou/uL (1.20-3.40); #Monocytes 0.7 thou/uL (0.11-0.59); #Neutrophils 7.9 thou/uL (1.40-6.50); %Basophils 0.1 % (0.0-1.0); %Eosinophils 2.1 % (0.0-10.0); %Lymphocytes 9.4 % (21.0-51.0); %Monocytes 7.4 % (0.0-10.0); Mean Corpuscular HGB CONC 34.4 g/dL (32.0-36.0); Mean Corpuscular Hemoglobin 31.1 pg (27.0-31.0); Mean Corpuscular Volume 90.4 fL (78.0-98.0); Mean Platelet Volume 8.1 fL (7.4-10.4); Platelet Count 192 thou/uL (130-400); RBC Distribution Width 11.8 % (11.5-14.5); Red Blood Cell (RBC) Count 4.52 mill/uL (4.70-6.10); White Blood Cell (WBC) Count 9.7 thou/uL (4.8-10.8)
[2021-08-27 16:11] LABS: ALT (SGPT) 16 U/L (8-55); AST (SGOT) 20 U/L (5-34); Albumin 4.3 g/dL (3.4-4.8); Alkaline Phosphatase 71 U/L (40-110); Anion Gap 16 mmol/L (10-20); BUN (Urea Nitrogen) 18 mg/dL (8.4-25.7); Bilirubin, Total 0.5 mg/dL (0.2-1.2); Calc. Creatinine Clearance 0 mL/min (70-130); Calcium 9.8 mg/dL (7.8-10.44); Carbon Dioxide 24 mmol/L (23-31); Chloride 102 mmol/L (98-107); Glucose 132 mg/dL (83-110); Lipase 25 U/L (8-78); Potassium 4.2 mmol/L (3.5-5.1); Protein, Total 7.3 g/dL (5.8-8.1); Sodium 138 mmol/L (136-145)
[2021-08-27] MEDS ORDERED: Morphine 4 MG/ML VIAL ONE (18:19)
[2021-08-27 18:49] LABS: Bacteria/HPF 1+ HPF (None Seen); Bilirubin Negative (Negative); Blood, Urine Negative (Negative); Clarity Clear (Clear); Glucose, Urine (Dipstick) Normal (Negative); Ketone, Urine 10 mg/dL (Negative); Leukocyte 250 Leu/uL (Negative); Nitrite Negative (Negative); Protein, Urine (Dipstick) Negative (Neg-Trace); RBC/HPF 0-3 HPF (0-3); Specific Gravity, Urine 1.019 (1.002-1.036); Squamous Epithelial 0-3 HPF (0-3); Urobilinogen Normal mg/dL (Less than 2); WBC/HPF Greater than 50 HPF (0-3)
[2021-08-27] MEDS ORDERED: Cefepime 2 GM VIAL ONE (19:39)
[2021-08-27] MEDS ORDERED: Vancomycin 1 GM/200 ML BAG ONE (20:44)
[2021-08-27] MEDS ORDERED: Ondansetron ODT 4 MG TAB SL PRN (21:45)
[2021-08-27] MEDS ORDERED: Ondansetron PF 4 MG/2 ML Vial IVP PRN (21:45)
[2021-08-27 21:49] VITALS: BMI 31.6
[2021-08-27] MEDS: Sodium Chloride 0.9% 1,000 ML IV SCH (22:15)
[2021-08-27] MEDS ORDERED: Dextrose 50% Abboject 50 ML SYRINGE SLOW IVP PRN (22:49)
[2021-08-27] MEDS ORDERED: Dextrose 5% in Water 1,000 ML IV PRN (22:49)
[2021-08-27] MEDS ORDERED: Acetaminophen 325 MG TAB PO PRN (22:49)
[2021-08-27] MEDS ORDERED: HumaLOG 300 UNITS/3 ML VIAL SC PRN (22:49)
[2021-08-27] MEDS ORDERED: Morphine 4 MG/ML VIAL SLOW IVP PRN (22:59)
[2021-08-27] MEDS ORDERED: Vancomycin 1 GM in Premix Bag 1 BAG IVPB SCH (23:00)
[2021-08-27] MEDS ORDERED: Electrolyte Replacement Protocol 1 EACH FS SCH (23:00)
[2021-08-27] MEDS ORDERED: VANCOMYCIN 1.25 GM/250 ML BAG 1.25 GM in Premix Bag 1 BAG IVPB SCH (23:30)
[2021-08-27 23:59] LABS: SARS-CoV-2 NAA Rapid Test Not Detected (NotDetected)
[2021-08-28] MEDS: Sodium Chloride 0.9% 1,000 ML IV SCH (06:27)
[2021-08-28 07:25] LABS: #Eosinphils 0.1 thou/uL (0.0-0.7); #Lymphocytes 1.1 thou/uL (1.20-3.40); #Monocytes 1.3 thou/uL (0.11-0.59); #Neutrophils 7.5 thou/uL (1.40-6.50); %Basophils 0.1 % (0.0-1.0); %Eosinophils 1.2 % (0.0-10.0); %Lymphocytes 10.9 % (21.0-51.0); %Monocytes 12.7 % (0.0-10.0); %Neutrophils 75.1 % (42.0-75.0); Hemoglobin 12.8 g/dL (14.0-18.0); Mean Corpuscular HGB CONC 34.9 g/dL (32.0-36.0); Mean Corpuscular Hemoglobin 31.2 pg (27.0-31.0); Mean Corpuscular Volume 89.5 fL (78.0-98.0); Platelet Count 125 thou/uL (130-400); RBC Distribution Width 11.7 % (11.5-14.5)
[2021-08-28 07:45] LABS: ALT (SGPT) 12 U/L (8-55); AST (SGOT) 18 U/L (5-34); Albumin 3.6 g/dL (3.4-4.8); Alkaline Phosphatase 55 U/L (40-110); Anion Gap 13 mmol/L (10-20); BUN (Urea Nitrogen) 16 mg/dL (8.4-25.7); Bilirubin, Total 0.8 mg/dL (0.2-1.2); Calc. Creatinine Clearance 52 mL/min (70-130); Calcium 8.7 mg/dL (7.8-10.44); Carbon Dioxide 23 mmol/L (23-31); Chloride 105 mmol/L (98-107); Globulin 2.6 g/dL (2.4-3.5); Glucose 86 mg/dL (83-110); Magnesium 1.9 mg/dL (1.6-2.6); Potassium 4.3 mmol/L (3.5-5.1); Protein, Total 6.2 g/dL (5.8-8.1); Sodium 137 mmol/L (136-145)
[2021-08-28] MEDS: Atorvastatin Calcium 10 MG TAB PO SCH (08:27)
[2021-08-28] MEDS: Tamsulosin HCl 0.4 MG CAP PO SCH (08:28)
[2021-08-28] MEDS: Cefepime 2 GM in Sodium Chloride 0.9% 100 ML IVPB SCH ×2 (08:28→20:04)
[2021-08-28] MEDS ORDERED: Magnesium 2 GM/50 ML 2 GM in Premix Bag 1 BAG IVPB SCH (09:00)
[2021-08-28] MEDS ORDERED: SUGAMMADEX SODIUM 200 MG/2 ML VIAL ONE (09:54)
[2021-08-28] MEDS ORDERED: Fentanyl 100 MCG/2 ML VIAL ONE ×3 (09:54→13:21)
[2021-08-28] MEDS ORDERED: Bupivacaine 0.25% HCL 30 ML VIAL ONE (10:02)
[2021-08-28] MEDS ORDERED: Lidocaine 1% w/Epinephrine 1:100K 20 ML VIAL ONE (10:02)
[2021-08-28 10:18] LABS: INR-International Normal Ratio 1.1; Prothrombin Time 13.9 sec (12.0-14.7)
[2021-08-28 10:19] LABS: PTT 27.8 sec (22.9-36.1)
[2021-08-28] MEDS ORDERED: CEFAZOLIN 1 GM VIAL ONE (10:37)
[2021-08-28] MEDS ORDERED: Sodium Chloride 0.9% 100 ML ONE (10:37)
[2021-08-28] MEDS ORDERED: Glycopyrrolate 0.2 MG/ML 5 ML SYRINGE ONE (10:48)
[2021-08-28] MEDS ORDERED: Ondansetron PF 4 MG/2 ML Vial ONE (10:48)
[2021-08-28] MEDS ORDERED: Succinylcholine 200 MG/10 ml SYRINGE FS ONE (10:48)
[2021-08-28] MEDS ORDERED: Rocuronium Bromide 10 MG/ML (10ML VIAL) ONE (10:48)
[2021-08-28] MEDS ORDERED: Lidocaine 1% PF 5 ML VIAL ONE (10:48)
[2021-08-28] MEDS ORDERED: Dexamethasone 20 MG/5 ML VIAL ONE (10:48)
[2021-08-28] MEDS ORDERED: PROPOFOL 200 MG/20 ML VIAL ONE (10:48)
[2021-08-28] MEDS ORDERED: ePHEDrine 50 MG/ML VIAL ONE (10:48)
[2021-08-28] MEDS ORDERED: Promethazine HCl 25 MG/ML VIAL IM PRN (12:50)
[2021-08-28] MEDS ORDERED: Ondansetron HCl/PF 4 MG/2 ML Vial IVP PRN (12:50)
[2021-08-28] MEDS ORDERED: Promethazine HCl 25 MG/ML VIAL IVPB PRN (12:50)
[2021-08-28] MEDS ORDERED: traMADol HCl 50 MG TAB PO PRN (13:31)
[2021-08-28] MEDS ORDERED: Morphine 4 MG/ML VIAL ONE (13:53)
[2021-08-28] MEDS ORDERED: Morphine 4 MG/ML VIAL SLOW IVP SCH (14:45)
[2021-08-28] MEDS: Acetaminophen 325 MG TAB PO SCH ×3 (14:46→20:02)
[2021-08-28] MEDS: traMADol HCl 50 MG TAB PO SCH (17:06)
[2021-08-28] MEDS: Morphine 4 MG/ML VIAL SLOW IVP PRN (20:03)
[2021-08-28] MEDS ORDERED: Vancomycin 1.5 GRAM/300 ML BAG 1.5 GM in Premix Bag 1 BAG IVPB SCH (21:00)
[2021-08-28] MEDS ORDERED: cefTRIAXone\\ROCEPHIN 1 GM in Sodium Chloride 0.9% 100 ML IVPB SCH (23:00)
[2021-08-29] MEDS: traMADol HCl 50 MG TAB PO SCH ×4 (00:28→17:57)
[2021-08-29] MEDS: Acetaminophen 325 MG TAB PO SCH ×4 (01:26→20:28)
[2021-08-29] MEDS: Morphine 4 MG/ML VIAL SLOW IVP PRN (03:27)
[2021-08-29 07:34] LABS: #Lymphocytes 0.8 thou/uL (1.20-3.40); #Monocytes 1.6 thou/uL (0.11-0.59); #Neutrophils 10.4 thou/uL (1.40-6.50); %Basophils 0.1 % (0.0-1.0); %Eosinophils 0.2 % (0.0-10.0); %Lymphocytes 6.3 % (21.0-51.0); %Monocytes 12.2 % (0.0-10.0); %Neutrophils 81.3 % (42.0-75.0); Hemoglobin 13.5 g/dL (14.0-18.0); Mean Corpuscular Hemoglobin 31.8 pg (27.0-31.0); Mean Platelet Volume 8.2 fL (7.4-10.4); Platelet Count 203 thou/uL (130-400); Red Blood Cell (RBC) Count 4.25 mill/uL (4.70-6.10); White Blood Cell (WBC) Count 12.7 thou/uL (4.8-10.8)
[2021-08-29 08:02] LABS: ALT (SGPT) 42 U/L (8-55); AST (SGOT) 44 U/L (5-34); Alkaline Phosphatase 57 U/L (40-110); Anion Gap 14 mmol/L (10-20); BUN (Urea Nitrogen) 19 mg/dL (8.4-25.7); Bilirubin, Total 1.2 mg/dL (0.2-1.2); Calc. Creatinine Clearance 57 mL/min (70-130); Calcium 8.9 mg/dL (7.8-10.44); Carbon Dioxide 23 mmol/L (23-31); Chloride 102 mmol/L (98-107); Globulin 2.8 g/dL (2.4-3.5); Glucose 112 mg/dL (83-110); Potassium 4.6 mmol/L (3.5-5.1); Protein, Total 6.8 g/dL (5.8-8.1); Sodium 134 mmol/L (136-145)
[2021-08-29] MEDS: Atorvastatin Calcium 10 MG TAB PO SCH (08:50)
[2021-08-29] MEDS: Tamsulosin HCl 0.4 MG CAP PO SCH (08:50)
[2021-08-29] MEDS: Cefepime 2 GM in Sodium Chloride 0.9% 100 ML IVPB SCH ×2 (08:50→21:14)
[2021-08-29] MEDS ORDERED: Lisinopril/Hydrochlorothiazide 20 mg/12.5 mg Tablet PO SCH (12:00)
[2021-08-29] MEDS ORDERED: Saccharomyces boulardii 250 MG CAP PO SCH (12:00)
[2021-08-29] MEDS ORDERED: Aspirin 81 mg Enteric Coated Tablet PO SCH (12:00)
[2021-08-29 20:39] LABS: Vancomycin, Trough 12.5 ug/mL
[2021-08-29] MEDS: VANCOMYCIN 1.75 GM/350 ML BAG 1.75 GM in Premix Bag 1 BAG IVPB SCH (21:53)
[2021-08-30] MEDS: traMADol HCl 50 MG TAB PO SCH ×4 (00:09→18:20)
[2021-08-30] MEDS: Acetaminophen 325 MG TAB PO SCH ×4 (01:12→21:04)
[2021-08-30 08:29] LABS: #Eosinphils 0.4 thou/uL (0.0-0.7); #Lymphocytes 0.9 thou/uL (1.20-3.40); #Monocytes 1.6 thou/uL (0.11-0.59); #Neutrophils 10.8 thou/uL (1.40-6.50); %Basophils 0.1 % (0.0-1.0); %Eosinophils 2.8 % (0.0-10.0); %Lymphocytes 6.3 % (21.0-51.0); %Monocytes 11.5 % (0.0-10.0); %Neutrophils 79.3 % (42.0-75.0); Hemoglobin 12.9 g/dL (14.0-18.0); Mean Corpuscular HGB CONC 34.1 g/dL (32.0-36.0); Mean Corpuscular Hemoglobin 30.8 pg (27.0-31.0); Mean Corpuscular Volume 90.3 fL (78.0-98.0); Mean Platelet Volume 8.1 fL (7.4-10.4); Platelet Count 208 thou/uL (130-400); RBC Distribution Width 11.9 % (11.5-14.5); White Blood Cell (WBC) Count 13.6 thou/uL (4.8-10.8)
[2021-08-30 08:51] LABS: Anion Gap 16 mmol/L (10-20); BUN (Urea Nitrogen) 22 mg/dL (8.4-25.7); Calc. Creatinine Clearance 52 mL/min (70-130); Carbon Dioxide 18 mmol/L (23-31); Chloride 103 mmol/L (98-107); Glucose 126 mg/dL (83-110); Potassium 4.2 mmol/L (3.5-5.1); Sodium 133 mmol/L (136-145)
[2021-08-30] MEDS: Saccharomyces boulardii 250 MG CAP PO SCH (08:55)
[2021-08-30] MEDS: Tamsulosin HCl 0.4 MG CAP PO SCH (08:56)
[2021-08-30] MEDS: Cefepime 2 GM in Sodium Chloride 0.9% 100 ML IVPB SCH ×2 (08:56→21:04)
[2021-08-30] MEDS: Atorvastatin Calcium 10 MG TAB PO SCH (08:56)
[2021-08-30] MEDS: Aspirin 81 mg Enteric Coated Tablet PO SCH (08:56)
[2021-08-30] MEDS: Lisinopril/Hydrochlorothiazide 20 mg/12.5 mg Tablet PO SCH (08:57)
[2021-08-30] MEDS ORDERED: Bisacodyl 10 MG SUPP PR SCH (09:45)
[2021-08-30] MEDS ORDERED: Magnesium Citrate 300 ML BOT PO SCH (14:30)
[2021-08-30] MEDS: Senokot S 8.6-50 MG TAB PO SCH (21:05)
[2021-08-30] MEDS: VANCOMYCIN 1.75 GM/350 ML BAG 1.75 GM in Premix Bag 1 BAG IVPB SCH (21:52)
[2021-08-31] MEDS: traMADol HCl 50 MG TAB PO SCH ×3 (00:01→14:26)
[2021-08-31] MEDS: Acetaminophen 325 MG TAB PO SCH ×2 (01:06→08:17)
[2021-08-31 07:21] LABS: #Eosinphils 0.6 thou/uL (0.0-0.7); #Lymphocytes 1.1 thou/uL (1.20-3.40); #Monocytes 1.5 thou/uL (0.11-0.59); #Neutrophils 7.7 thou/uL (1.40-6.50); %Eosinophils 5.6 % (0.0-10.0); %Lymphocytes 9.7 % (21.0-51.0); %Monocytes 13.8 % (0.0-10.0); %Neutrophils 70.9 % (42.0-75.0); Hemoglobin 12.6 g/dL (14.0-18.0); Mean Corpuscular HGB CONC 34.6 g/dL (32.0-36.0); Mean Corpuscular Hemoglobin 31.7 pg (27.0-31.0); Mean Corpuscular Volume 91.6 fL (78.0-98.0); Mean Platelet Volume 7.6 fL (7.4-10.4); Platelet Count 213 thou/uL (130-400); RBC Distribution Width 11.8 % (11.5-14.5); Red Blood Cell (RBC) Count 3.99 mill/uL (4.70-6.10); White Blood Cell (WBC) Count 10.8 thou/uL (4.8-10.8)
[2021-08-31 07:38] LABS: ALT (SGPT) 24 U/L (8-55); AST (SGOT) 22 U/L (5-34); Albumin 3.6 g/dL (3.4-4.8); Alkaline Phosphatase 59 U/L (40-110); Anion Gap 13 mmol/L (10-20); BUN (Urea Nitrogen) 24 mg/dL (8.4-25.7); Bilirubin, Total 0.7 mg/dL (0.2-1.2); Calc. Creatinine Clearance 53 mL/min (70-130); Carbon Dioxide 19 mmol/L (23-31); Chloride 103 mmol/L (98-107); Globulin 2.8 g/dL (2.4-3.5); Glucose 118 mg/dL (83-110); Phosphorus 2.9 mg/dL (2.3-4.7); Protein, Total 6.4 g/dL (5.8-8.1); Sodium 131 mmol/L (136-145)
[2021-08-31] MEDS ORDERED: Potassium Chloride 20 MEQ TAB PO SCH (08:15)
[2021-08-31] MEDS ORDERED: Magnesium 2 GM/50 ML 2 GM in Premix Bag 1 BAG IVPB SCH (08:15)
[2021-08-31] MEDS: Saccharomyces boulardii 250 MG CAP PO SCH (08:18)
[2021-08-31] MEDS: Atorvastatin Calcium 10 MG TAB PO SCH (08:19)
[2021-08-31] MEDS: Senokot S 8.6-50 MG TAB PO SCH (08:19)
[2021-08-31] MEDS: Aspirin 81 mg Enteric Coated Tablet PO SCH (08:20)
[2021-08-31] MEDS: Tamsulosin HCl 0.4 MG CAP PO SCH (08:20)
[2021-08-31] MEDS: Lisinopril/Hydrochlorothiazide 20 mg/12.5 mg Tablet PO SCH (08:21)
[2021-08-31] MEDS: Cefepime 2 GM in Sodium Chloride 0.9% 100 ML IVPB SCH (08:21)
[2021-08-31] MEDS ORDERED: Aspirin 81 mg Enteric Coated Tablet ONE (08:32)
[2021-08-31] MEDS ORDERED: Polyethylene Glycol 3350 17 GM Packet PO SCH (09:00)
[2021-08-31 12:52] VITALS: BP 142/84; TEMP 98.6
== END 2021-08-31 12:44 | disposition home or self-care (01) | DRG 418 ==
LOC: ERS 14:52 → T4-A 19:27
PROVIDERS: ADMIT Internal Medicine; ATTEND Family Medicine
PROC: 0FT44ZZ Resection of Gallbladder, Percutaneous Endoscopic Approach (ICD-10-PCS; principal; 2021-08-28)
DX: K80.12 Calculus of gallbladder with acute and chronic cholecystitis without obstruction (principal); N30.00 Acute cystitis without hematuria; N17.9 Acute kidney failure, unspecified; K56.7 Ileus, unspecified; B95.2 Enterococcus as the cause of diseases classified elsewhere; N18.30 Chronic kidney disease, stage 3 unspecified; E11.22 Type 2 diabetes mellitus with diabetic chronic kidney disease; I12.9 Hypertensive chronic kidney disease with stage 1 through stage 4 chronic kidney disease, or unspecified chronic kidney disease; Z87.442 Personal history of urinary calculi; F32.A Depression, unspecified; Z96.651 Presence of right artificial knee joint; Z20.822 Contact with and (suspected) exposure to COVID-19; Z88.1 Allergy status to other antibiotic agents; Z88.0 Allergy status to penicillin; Z88.8 Allergy status to other drugs, medicaments and biological substances
CPT/HCPCS: 36415; 36416; 71045; 71275; 74018; 74174; 74176; 76705; 80048; 80053; 80202; 81003; 81015; 83605; 83690; 83735; 84100; 84484; 85025; 85610; 85730; 87077; 87086; 87186; 88304; 93005; 96365; 96367; 96374; 96375; J0690; J0692; J1100; J2270; J2405; J2704; J3010; J3370; J3475; J3490; J7050; Q9967; S0020; U0002